=== PATIENT | female | born 1960 | race Caucasian/White ===

== ENCOUNTER 2020-03-28 12:54 | Inpatient (IN) | payer OTHER, SELFPAY ==
[2020-03-28] VITALS (35 sets, daily range): BP systolic 90–147; BP diastolic 34–98; PULSE 68–122; RESP 14–535; TEMP 36.4–36.7; O2SAT 95–100; BMI 56.3
--- NOTE | ~2020-03-28 | XR_ITS ---
EXAMINATION: XR knee RT 2V DATE: 03/29/2020 11:27 INDICATION: Right knee pain and swelling. TECHNIQUE: 3 views of right knee were obtained. COMPARISON: Right knee radiographs 11/22/2017 FINDINGS: There is lateral subluxation of tibia with respect to distal femur. No fracture. There is s evere tricompartmental osteoarthritis. No knee joint effusion. IMPRESSION: 1. Severe right knee osteoarthritis. Reviewed, dictated and finalized at location A.
--- NOTE | ~2020-03-28 | CT_ITS ---
EXAMINATION: CT abdomen w con DATE: 03/30/2020 09:48 INDICATION: Left adrenal mass. TECHNIQUE: Computed tomography (CT) of the abdomen was performed with 100 mL Omnipaque 350 intravenou s contrast. Automated exposure control and iterative reconstruction technique were employed. The dose -length product was 848.40 mGy-cm. COMPARISON: CT abdomen and pelvis 08/19/2019, chest CT 03/28/2020 FINDINGS: The visualized portions of the lung bases demonstrate atelectasis, worst in right middle lo be and left lower lobe. There is a trace left pleural effusion. Cardiomegaly is noted. No pericardial effusion. The liver, gallbladder, spleen, pancreas, and right adrenal gland are normal. There is a 2 .6 cm mass in left adrenal gland measuring soft tissue attenuation without change, likely an adenoma. There is a 2.0 cm mass in left adrenal gland containing macroscopic fat, consistent with a myelolipo ma. There are cysts in the kidneys measuring up to 8 mm on the left. No pleural effusion. There is di verticulosis of the colon without evidence of diverticulitis. There is severe lower lumbar spondylosi s. IMPRESSION: 1. Adrenal masses, stable from 08/19/2019, likely benign. Reviewed, dictated and finalized at location A.
--- NOTE | ~2020-03-28 | US_ITS ---
EXAMINATION:US venous doppler LE RT INDICATION:Right leg pain TECHNIQUE: Multiple grayscale, color flow and Doppler images of the right lower extremity deep venous systems were obtained and reviewed. COMPARISON:No prior studies for comparison. FINDINGS: The common femoral, superficial femoral and popliteal veins demonstrate normal respiratory variation, augmentation and compressibility. Color flow is also seen within the posterior tibial, pe roneal, greater saphenous and profunda veins. IMPRESSION: 1: No lower extremity deep venous thrombosis. Reviewed, dictated and finalized at location A.
--- NOTE | ~2020-03-28 | XR_ITS ---
EXAMINATION: XR chest 1V portable DATE: 04/01/2020 05:45 INDICATION: Shortness of breath. TECHNIQUE: A single frontal view of the chest was obtained. COMPARISON: Chest single view 03/28/2020, CT abdomen 03/30/2020, chest CT 03/28/2020 FINDINGS: There are airspace opacities in all lung zones bilaterally, left worse than right. No pleur al effusion or pneumothorax. Cardiomegaly is noted. There is a prominent left paracardial fat pad. IMPRESSION: 1. Worsened diffuse lung disease suspicious for pneumonia. 2. Cardiomegaly. Reviewed, dictated and finalized at location A.
--- NOTE | ~2020-03-28 | CT_ITS ---
EXAMINATION: CTA chest PE protocol DATE: 03/28/2020 16:38 INDICATION: Shortness of breath TECHNIQUE: Computed tomography (CT) pulmonary angiogram of the chest was performed with 100 mL Omnipa que-350 intravenous contrast. Additional 3D reconstructions utilizing coronal maximum intensity proje ction (MIP) were performed. Automated exposure control and iterative reconstruction technique were em ployed. The dose-length product was 934.89 mGy-cm. COMPARISON: None FINDINGS: Good contrast opacification of the pulmonary arteries. There is mild streak artifact from dense contr ast in the superior vena cava and right atrium. Moderate scattered respiratory motion artifact which significantly limits sensitivity in the and subsegmental and basilar segmental arteries. No definitiv e embolism. Mild emphysema at the apices. Discoid atelectasis in the left lower lobe. A few patchy gr oundglass opacities in the right upper lobe. No pleural effusion. Mild cardiomegaly. Atherosclerotic coronary artery calcification. No pericardial effusion. Atherosclerotic calcifications without signif icant stenosis along the normal caliber thoracic aorta. Likely reactive mild bilateral hilar lymphade nopathy. Relatively low attenuation left adrenal mass suggestive of adenoma however diagnostic assess ment of attenuation is limited by motion artifact. Mild thoracic dextroscoliosis with mild to moderat e spondylosis. IMPRESSION: 1. No pulmonary embolism however evaluation is significantly limited in the subsegmental and basilar segmental pulmonary arteries due to motion artifact. 2. Mild patchy groundglass opacities in the right upper lobe which could represent pneumonia, atelect asis or focal mild pulmonary edema. 3. Mild emphysema. 4. Coronary artery disease and mild cardiomegaly. 5. 3 cm left adrenal mass with density suggestive of adenoma but not diagnostic due to motion. Recomm end follow-up adrenal protocol pre and postcontrast CT of the abdomen. Reviewed, dictated and finalized at location A. IMPRESSION: 1. No pulmonary embolism however evaluation is significantly limited in the sub segmental and basilar segmental pulmonary arteries due to motion artifact. 2. Mild patchy groundglass opacities in the right upper lobe which could repres ent pneumonia, atelectasis or focal mild pulmonary edema. 3. Mild emphysema. 4. Coronary artery disease and mild cardiomegaly. 5. 3 cm left adrenal mass with density suggestive of adenoma but not diagnostic due to motion. Recommend follow-up adrenal protocol pre and postcontrast CT of the abdomen.
--- NOTE | ~2020-03-28 | XR_ITS ---
EXAMINATION: XR shoulder RT min 2V EXAM DATE: 03/29/2020 20:22 INDICATION: No known recent injury provided at this time. Pain of the right shoulder. TECHNIQUE: The following right shoulder projections obtained: frontal projection with internal rotati on, frontal projection with external rotation, Grashey, and scapular Y view (4+ views). There is no prior study for comparison. FINDINGS: There are multiple small calcifications along the rotator cuff, superior to the glenoid, pr obably calcific tendinosis. There is mild right acromioclavicular and glenohumeral primary osteoarthr itis. There are no acute fractures or dislocations identified. There is no subcutaneous gas. The so ft tissue is unremarkable. There are no radiopaque foreign bodies. IMPRESSION: 1. Mild right shoulder osteoarthritis. 2. Calcific tendinosis. Reviewed, dictated and finalized at location A.
--- NOTE | ~2020-03-28 | XR_ITS ---
XR chest 1V portable 03/28/2020 13:53 Indication: Shortness of breath Procedure: AP portable chest Comparison: Comparison to multiple prior studies sequentially, with oldest reviewed study dated 11/10. Findings: Cardiomegaly. Left basilar atelectasis. No focal pneumonia, edema, pleural effusion or pneu mothorax. No acute osseous abnormality. Impression: 1: No acute cardiopulmonary disease. Reviewed, dictated and finalized at location A. Impression: 1: No acute cardiopulmonary disease.
--- NOTE | ~2020-03-28 | XR_ITS ---
EXAMINATION: XR shoulder LT min 2V DATE: 03/29/2020 11:27 INDICATION: Left shoulder pain. TECHNIQUE: 4 views of left shoulder were obtained. COMPARISON: Chest CT 03/28/2020 FINDINGS: Bone alignment is normal. No fracture. The glenohumeral joint is not well profiled. There i s mild acromioclavicular joint osteoarthritis. There is mild calcific tendinitis of the rotator cuff. IMPRESSION: 1. Mild left acromioclavicular joint osteoarthritis. 2. Mild calcific tendinitis of left rotator cuff. Reviewed, dictated and finalized at location A.
--- NOTE | 2020-03-28 13:08 | ECG_ITS ---
Measurements Intervals [place] Rate: 75 P: 74 NE: 148 QRS: 48 QRSD: 85 T: 15 QT: 365 QTc: 410 Interpretive Statements SINUS RHYTHM DELAYED PRECORDIAL R/S TRANSITION LOW QRS VOLTAGE IN LIMB LEADS BASELINE ARTIFACT- V3 BORDERLINE ECG Electronically Signed On 03-29-2020 7:12:40 CDT by Armani Muro D.O.
--- NOTE | 2020-03-28 13:18 | ED.GENADULT ---
HPI - General Adult General Chief complaint: Weakness <YAIR Flores Last Filed: 03/28/20 18:14> Stated complaint: weakness <YAIR Flores Last Filed: 03/28/20 18:14> Source: patient <YAIR Flores Last Filed: 03/28/20 18:14> Mode of arrival: ambulatory <YAIR Flores Last Filed: 03/28/20 18:14> Limitations: no limitations <YAIR Flores Last Filed: 03/28/20 18:14> History of Present Illness HPI narrative: Patient is a 59-year-old female who presents to emergency department for evaluation of generalized arthralgias that have been present for the last several days also noting history of COPD and states she has had some shortness of breath with chronic cough denies any URI symptoms patient denies any fall patient also notes she has had constipation which is chronic in nature presents per EMS noting that she is normally wheelchair-bound lives by herself. <YAIR Flores Last Filed: 03/28/20 18:14> Related Data Home medications: Home Medications Medication Instructions Recorded Confirmed budesonide-formoterol HFA 160 INHALATION 11/07/19 01/15/20 mcg-4.5 mcg/actuation aerosol inhaler fluoxetine 20 mg capsule 40 mg PO DAILY cap 11/07/19 01/15/20 lisinopril 20 mg tablet 20 mg PO DAILY 11/07/19 01/15/20 spironolactone 25 mg tablet 25 mg PO DAILY 11/07/19 01/15/20 <YAIR Flores Last Filed: 03/28/20 18:14> Allergies/adverse reactions: Allergies Allergy/AdvReac Type Severity Reaction Status Date / Time ampicillin AdvReac Intermediate Nausea Verified 03/28/20 13:17 azithromycin AdvReac Intermediate Vomiting Verified 03/28/20 13:17 codeine AdvReac Intermediate Vomiting Verified 03/28/20 13:17 atorvastatin AdvReac Mild Muscle Pain Verified 03/28/20 13:17 tramadol AdvReac vommiting Verified 03/28/20 13:17 Erythromycin/Sulfisoxazole Allergy Intermediate Unknown Uncoded 03/28/20 13:17 <YAIR Flores Last Filed: 03/28/20 18:14> Review of Systems Review of Systems: All systems reviewed & are unremarkable except as noted in HPI and below <Naman Costa PA-C - Last Filed: 03/28/20 18:14> [facility] Past Medical History Medical History: Medical History Cellulitis and abscess of buttock Diabetes mellitus type 2 in obese Hyperlipidemia associated with type 2 diabetes mellitus Hypertension Morbid obesity with BMI of 50.0-59.9, adult <Naman Costa PA-C - Last Filed: 03/28/20 18:14> Social History Social History: Social History Years smoked: 50 Smoking status: Current every day smoker Tobacco type: cigarettes Alcohol intake: never Substance use: never Substance use type: marijuana Gender identity (if verbalized by the patient): Female <Naman Costa PA-C - Last Filed: 03/28/20 18:14> Exam Narrative: Exam Narrative: GENERAL: Well-appearing, obese, and in no acute distress. HEAD: Normocephalic, atraumatic. EYES: PERRLA and EOMI. ENT: Nares clear, no rhinorrhea or epistaxis. Mucous membranes moist. Oropharynx without tonsillar hypertrophy exudate or other lesions. NECK: Supple. No adenopathy or masses. CHEST: Clear to auscultation. No respiratory distress. Slight expiratory wheezes HEART: Regular rate and rhythm. No murmur heard. Normal peripheral pulses. ABDOMEN: Soft, nontender, nondistended EXTREMITIES: Normal range of motion. Chronic lymphedema of the lower extremities SKIN: Warm, dry, no rash. NEURO: No focal deficits. Alert and oriented x3. Cranial nerves II through XII grossly intact PSYCH: Normal mood and affect. <Naman Costa PA-C - Last Filed: 03/28/20 18:14> Course Course Emergency Course: Patient in the room aware of case findings treatment plan and diagnosis agreeing to stay in hospital for her hypoxemia and hy
[2020-03-28] MEDS: SODIUM CHLORIDE 0.9% IV 1,000 ML 999 ML IV CONT (13:26)
[2020-03-28 13:31] LABS: Alveolar/Arterial O2 Gradient 56.2 mmHg; Base Excess ABG 2.2 mEq/l (+/-2.0); Fractional Inspired Oxygen 32 %; HCO3 ABG 29.9 mEq/l (22.0-26.0); Oxygen Content ABG 14.8 %vol (16.0-22.0); Oxygen Saturation ABG 96.6 % (95.0-100.0); Oxyhemoglobin 92.9 % THb (90.0-100.0); PO2 ABG 98.5 mmHg (80.0-100.0); PO2 FiO2 Ratio Arterial Blood 3.08 %; Total Hemoglobin 11.2 g/dL (12.0-18.0); pH ABG 7.296 (7.350-7.450)
[2020-03-28 13:35] LABS: Device NASAL CANNULA; Modified Allen's Test Pass; PCO2 ABG 62.8 mmHg (35.0-45.0); Site Drawn LEFT RADIAL
--- NOTE | 2020-03-28 13:36 | PC.NURSE ---
Pt unable to recall medications, yells at nurse to read the fucking papers when asked to confirm.
--- NOTE | 2020-03-28 14:00 | PC.NURSE ---
RT at bedside to place patient on bipap.
--- NOTE | 2020-03-28 15:05 | PC.NURSE ---
Pt straight cathed with assist x3. Note large open, moist area to left perineum and several open areas to left pannus. Entire perineum inflamed, moist and malodorous. Pt tolerated procedure poorly, states that she uses a commode at home to use the restroom. Pt states pain has not improved however appears to feel better.
[2020-03-28 15:36] LABS: Basophils Absolute Auto 0.1 K/mm3 (0.0-0.1); Basophils Percent Auto 0.5 % (0.2-1.2); Eosinophils Absolute Auto 0.3 K/mm3 (0-0.3); Eosinophils Percent Auto 2.8 % (0-4.4); Hematocrit 35.4 % (37.0-47.0); Hemoglobin 10.4 g/dL (12.0-15.0); Immature Granulocyte Absolute 0.04 K/mm3 (0.00-0.031); Immature Granulocyte Percent A 0.3 % (0-0.5); Lymphocytes Absolute Auto 0.96 K/mm3 (0.9-3.2); Lymphocytes Percent Auto 7.9 % (18.3-44.2); Mean Corpuscular HGB Conc 29.4 g/dl (32-36); Mean Corpuscular Hemoglobin 26.4 pg (26-34); Mean Corpuscular Volume 89.8 fl (80-100); Monocytes Absolute Auto 0.9 K/mm3 (0.1-0.6); Monocytes Percent Auto 7.6 % (2.6-8.5); Neutrophils Absolute Auto 9.9 K/mm3 (1.3-6.7); Neutrophils Percent Auto 80.9 % (45.5-73.1); Platelet Count Result 336 k/mm3 (150-375); Red Blood Count 3.94 M/mm3 (4.2-5.4); Red Cell Distribution Width 16.3 % (11.5-14.5); White Blood Count 12.2 K/mm3 (4.5-10.0)
[2020-03-28 15:39] LABS: Add Urine Microscopic? NO; Appearance Urine Clear (Clear); Bilirubin Urine Negative (Negative); Blood Urine Negative (Negative); Color Urine Yellow (Yellow); Glucose Urine UA Negative (Negative); Ketones Urine Negative (Negative); Leukocyte Esterase Ur Negative LEU/UL (Negative); Nitrate Urine Negative (Negative); Protein Urine Negative (Negative); Specific Grav Ur 1.014 (1.001-1.035); Urobilinogen Urine Negative mg/dL (<2.0)
[2020-03-28 15:45] LABS: Prothrombin Time 13.2 Seconds (11.1-14.7)
[2020-03-28 15:46] LABS: Partial Thromboplastin Time 33.5 SECONDS (22.3-36.8)
[2020-03-28 15:48] LABS: Alanine Aminotransferase 9 U/L (4-35); Albumin Level 3.4 g/dL (3.5-5.1); Alkaline Phosphatase 93 U/L (38-126); Aspartate Amino Transferase 23 U/L (14-36); Bilirubin,Total 0.5 mg/dL (0.2-1.3); Blood Urea Nitrogen 24 mg/dL (7-17); Carbon Dioxide 33 mmol/L (22-30); Chloride 97 mmol/L (98-107); D Dimer 1.87 ug/mL (<0.48); Estimated CRCL calculation 68 ml/min; Estimated Glomerular Filt Rate 46; Glucose 103 mg/dL (65-105); Potassium 5.2 mmol/L (3.4-5.0); Sodium 134 mmol/L (137-145)
[2020-03-28 16:00] LABS: NT Pro B Type Natriuretic Pept 306 PG/ML (5-100); Troponin I < 0.012 ng/mL (0.000-0.034)
--- NOTE | 2020-03-28 16:24 | PC.NURSE ---
bipap paused for patient to go to CT. Placed on 3L/nc for transport per order MAURY Amin.
[2020-03-28 17:01] LABS: Alveolar/Arterial O2 Gradient 31.5 mmHg; Base Excess ABG 0.6 mEq/l (+/-2.0); Fractional Inspired Oxygen 24 %; HCO3 ABG 27.9 mEq/l (22.0-26.0); Oxygen Content ABG 13.6 %vol (16.0-22.0); Oxygen Saturation ABG 91.8 % (95.0-100.0); Oxyhemoglobin 89.7 % THb (90.0-100.0); PCO2 ABG 58.8 mmHg (35.0-45.0); PO2 ABG 69.7 mmHg (80.0-100.0); Total Hemoglobin 10.7 g/dL (12.0-18.0)
[2020-03-28 17:02] LABS: Device NASAL CANNULA; Modified Allen's Test Pass; Site Drawn RIGHT RADIAL
[2020-03-28 17:07] LABS: pH ABG 7.294 (7.350-7.450)
--- NOTE | 2020-03-28 17:19 | PC.NURSE ---
Return from CT, repeat ABG's done while pt off of bipap. ABG's improved but remain critical. Bipap replaced per RT.
[2020-03-28] MEDS: methylPREDNISolone SOD SUCC 125 MG VIAL IV PUSH (18:23)
--- NOTE | 2020-03-28 19:08 | PC.NURSE ---
Attempt to call report to IMU. Floor unable to take at present.
--- NOTE | 2020-03-28 21:00 | PM.IMHP ---
H&P: HPI History of Present Illness Chief complaint: Pain in her joints, swollen all over Narrative: Date and time of patient contact: 03/28/2020 at 9:00 p.m. Juanita Gil is a 59 year old female with a past medical history of morbid obesity, COPD with chronic home oxygen use, continued tobacco use, diabetes mellitus, and obstructive sleep apnea who presented to the ER via EMS from home due to generalized joint pain. While in the ER the patient was found to have acute combined respiratory and metabolic acidosis, as well as mild hyperkalemia and leukocytosis and was admitted in this setting. The patient is irritable and frustrated and states that no one is listening to her. She does not want to wear the BiPAP that was ordered in the ER for her breathing because she states that her breathing is not her main problem. However, she does admit that she has been having increased coughing with a change in her sputum from her usual clear to yellow color to yellow to green color over the last 5 days. She is always short of breath. She does not more short of breath than usual. She is on her usual 3 L of oxygen. She does not know if she had a measured fever but she has been having chills that sounds as if there consistent with rigors as well as periods of feeling hot. She has been feeling more fatigued than usual. She has not been using her CPAP for at least a month but it sounds as if it may be actually a couple of months. She reports that the [employer] company since her the wrong filters and she has not called them back to get the appropriate equipment sent. She reports that her shoulders hurts so bad and her so weak that she cannot lift her left arm far enough for me to palpate her pulse. She reports that she is swollen all over. But then when I asked her about her lower extremity edema it seems that this is more chronic in nature. She has significant pain even with minimal passive and active range of motion of the right knee. She had to reach across her body to grab her left arm to pull her left arm up onto her abdomen. She had significant pain in her left shoulder even with passive range of motion. 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 She has been taking between 5-6 naproxen several times a day at least for the last 5 days with only minimal relief in her pain. She is also on Celebrex. She reports that she has chronic decubitus wounds to the entirety of her posterior left thigh that she has an outpatient appointment with wound care tomorrow. She has chronic irritation in her inguinal and pannus folds. On examination the patient had shallow ulcerations of the right pannus fold. She has been having some nausea and decreased appetite but no vomiting. She reports that her last bowel movement was a couple of days ago and was small. She cannot tell me if she was having any hematochezia or melena. She can stand to pivot to a bedside commode usually but has not been able to get up at all the last couple of days. She denies any dysuria and does not know effort urine has been darker than usual. She denies any sore throat or heartburn symptoms. She denies any confusion, falls, trauma, or safety concerns. She recently kicked her daughter out of her home and her daughter is now homeless. She told the nursing staff that her daughter was trying to ?take over? when she was living in the home. The patient denies any recent ill contacts. She states that she has not been out of her home. However she has friends who come over to deliver her groceries and will sometimes stay to visit. She does not think that any of them have been ill. Although Bactrim is listed on the patient's home med rec she has not been prescribed this since December. Review of Systems Review of Systems: Narrative: 12 systems were reviewed with pertinent positives and negatives per HPI. Except as documented in the HPI, all other systems were reviewed
[2020-03-28] MEDS: LACTATED RINGERS 1,000 ML 75 ML IV CONT (22:13)
[2020-03-28] MEDS: SILVER SULFADIAZINE 1% CR 400 GM JAR (*BKC) 1 APPLIC TOPICAL (22:14)
[2020-03-28] MEDS: TOLNAFTATE 1% POWDER 45 GM BTL 1 APPLIC TOPICAL (22:14)
[2020-03-28] MEDS: FAMOTIDINE 20 MG/2 ML VIAL IV PUSH (22:14)
[2020-03-28] MEDS: ENOXAPARIN 40 MG/0.4 ML SYRINGE SUB-Q (22:15)
[2020-03-28 23:26] LABS: Alveolar/Arterial O2 Gradient 85.6 mmHg; Base Excess ABG 3.3 mEq/l (+/-2.0); Carboxyhemoglobin 1.1 % THb (0-2.0); Fractional Inspired Oxygen 34 %; HCO3 ABG 31.4 mEq/l (22.0-26.0); Methemoglobin ABG 0.4 %THb (0-1.5); Oxygen Content ABG 14.2 %vol (16.0-22.0); Oxygen Saturation ABG 93.6 % (95.0-100.0); Oxyhemoglobin 92.8 % THb (90.0-100.0); PO2 FiO2 Ratio Arterial Blood 2.29 %; Reduced Hemoglobin 5.7 %THb (0-5.0); Total Hemoglobin 10.8 g/dL (12.0-18.0)
[2020-03-28 23:29] LABS: PCO2 ABG 67.7 mmHg (35.0-45.0); pH ABG 7.284 (7.350-7.450)
[2020-03-28 23:30] LABS: Device NASAL CANNULA; Modified Allen's Test Pass; Site Drawn LEFT RADIAL
[2020-03-28 23:45] LABS: Lactic Acid Reflex 0.7 mmol/L (0.7-2.1)
[2020-03-28 23:46] LABS: Blood Urea Nitrogen 21 mg/dL (7-17); Carbon Dioxide 31 mmol/L (22-30); Chloride 98 mmol/L (98-107); Estimated CRCL calculation 72 ml/min; Estimated Glomerular Filt Rate 57; Glucose 197 mg/dL (65-105); Potassium 5.5 mmol/L (3.4-5.0); Sodium 133 mmol/L (137-145)
[2020-03-29] VITALS (21 sets, daily range): BP systolic 126–142; BP diastolic 49–56; PULSE 74–100; RESP 18–22; TEMP 36.4–36.8; O2SAT 92–97
[2020-03-29] MEDS: NICOTINE (*PBKC) 21 MG PATCH 1 PATCH TRANSDERM ×2 (02:19→21:59)
[2020-03-29] MEDS: IPRATROPIUM BR 0.02% INH SOLN 0.5 MG/2.5 ML VIAL INHALATION ×4 (02:33→19:51)
--- NOTE | 2020-03-29 03:02 | ADMGEN ---
This patient, Juanita Gil, was admitted to IMU Room 203-01. Patient/family oriented to hospital policies and general routines including ID bracelet, bed and alarms, visiting hours, pain management, procedures, bathroom and other care routines, personal items, smoking policy, room service/diet, and visiting hours. Valuables list has been completed. Information on how to activate the Rapid Response Team has been discussed. Patient/Family are encouraged to report perceived risks to care and to ask questions if they do not understand what they are told or what they should do.
--- NOTE | 2020-03-29 03:46 | PC.NURSE ---
At 0045 patient began to scream that she wanted to go to the bathroom. The rn reminded the patient that she came into the hospital because she was unable to even get out of bed. Getting up at this time would be very unsafe so a bed cano was offered to patient. Patient became very angry and was screaming and saying unacceptable words to rn. patient kept screaming to get up. Patient became very violent and silvia lebron was called.
[2020-03-29 04:47] LABS: Hematocrit 35.7 % (37.0-47.0); Hemoglobin 10.6 g/dL (12.0-15.0); Immature Granulocyte Absolute 0.04 K/mm3 (0.00-0.031); Immature Granulocyte Percent A 0.5 % (0-0.5); Lymphocytes Absolute Auto 0.46 K/mm3 (0.9-3.2); Lymphocytes Percent Auto 6.1 % (18.3-44.2); Mean Corpuscular HGB Conc 29.7 g/dl (32-36); Mean Corpuscular Hemoglobin 26.2 pg (26-34); Mean Corpuscular Volume 88.4 fl (80-100); Mean Platelet Volume 10.1 fl (7.4-10.4); Monocytes Absolute Auto 0.1 K/mm3 (0.1-0.6); Monocytes Percent Auto 0.7 % (2.6-8.5); Neutrophils Absolute Auto 6.9 K/mm3 (1.3-6.7); Neutrophils Percent Auto 92.7 % (45.5-73.1); Platelet Count Result 414 k/mm3 (150-375); Red Blood Count 4.04 M/mm3 (4.2-5.4); Red Cell Distribution Width 15.7 % (11.5-14.5); White Blood Count 7.5 K/mm3 (4.5-10.0)
[2020-03-29] MEDS: SODIUM CHLOR 3% 15 ML NEB (RESPIRATORY THERAPY) 6 ML INHALATION (04:47)
[2020-03-29 05:04] LABS: Alanine Aminotransferase 10 U/L (4-35); Albumin Level 3.6 g/dL (3.5-5.1); Alkaline Phosphatase 98 U/L (38-126); Aspartate Amino Transferase 13 U/L (14-36); Bilirubin,Total 0.3 mg/dL (0.2-1.3); Blood Urea Nitrogen 20 mg/dL (7-17); Calcium 9.3 mg/dL (8.4-10.2); Carbon Dioxide 31 mmol/L (22-30); Chloride 98 mmol/L (98-107); Estimated CRCL calculation 65 ml/min; Estimated Glomerular Filt Rate 51; Glucose 172 mg/dL (65-105); Potassium 5.2 mmol/L (3.4-5.0); Sodium 136 mmol/L (137-145)
[2020-03-29 05:07] LABS: Platelet Estimate Adequate (Adequate)
[2020-03-29 05:08] LABS: Microcytosis 1+ (NORMAL); Stomatocytes 1+ (NORMAL)
[2020-03-29] MEDS: methylPREDNISolone SOD SUCC 125 MG VIAL 60 MG IV PUSH (05:54)
[2020-03-29] MEDS: FLUOXETINE HCL 20 MG CAP 40 MG PO (09:16)
[2020-03-29] MEDS: PANTOPRAZOLE 40 MG TABLET PO (09:16)
[2020-03-29] MEDS: FAMOTIDINE 20 MG/2 ML VIAL IV PUSH ×2 (09:16→21:59)
[2020-03-29] MEDS: ENOXAPARIN 40 MG/0.4 ML SYRINGE SUB-Q ×2 (09:17→21:59)
[2020-03-29] MEDS: LOVASTATIN 10 MG TABLET PO (09:17)
[2020-03-29] MEDS: SILVER SULFADIAZINE 1% CR 400 GM JAR (*BKC) 1 APPLIC TOPICAL (09:17)
[2020-03-29] MEDS: TOLNAFTATE 1% POWDER 45 GM BTL 1 APPLIC TOPICAL ×2 (09:17→22:02)
[2020-03-29 10:51] LABS: Alveolar/Arterial O2 Gradient 109.3 mmHg; Base Excess ABG 4.2 mEq/l (+/-2.0); Carboxyhemoglobin 1.1 % THb (0-2.0); Fractional Inspired Oxygen 32 %; HCO3 ABG 29.9 mEq/l (22.0-26.0); Methemoglobin ABG 0.1 %THb (0-1.5); Oxygen Content ABG 13.7 %vol (16.0-22.0); Oxygen Saturation ABG 90.5 % (95.0-100.0); Oxyhemoglobin 89.2 % THb (90.0-100.0); PCO2 ABG 50.3 mmHg (35.0-45.0); PO2 FiO2 Ratio Arterial Blood 1.88 %; Reduced Hemoglobin 9.6 %THb (0-5.0); Total Hemoglobin 10.9 g/dL (12.0-18.0); pH ABG 7.392 (7.350-7.450)
[2020-03-29 10:52] LABS: Device NASAL CANNULA; Modified Allen's Test Pass; Site Drawn RIGHT RADIAL
--- NOTE | 2020-03-29 16:31 | PM.IMPN ---
Progress Note: A&P Assessment and Plan (1) Acute exacerbation of chronic obstructive pulmonary disease: Code(s): J44.1 - Chronic obstructive pulmonary disease with (acute) exacerbation Status: Acute Assessment and Plan: -----likely due to pneumonia. Her ABG has improved with BiPAP therapy. Solu-Medrol has been decreased to 40 mg q.12. She is not utilizing any more oxygen than she usually takes. She is not having any additional shortness of breath compared to her normal baseline shortness of breath. Will continue Levaquin IV. Patient appears to have rigors so we will await for her blood cultures. Since she is having a productive cough, I have ordered a sputum culture. Continue Xopenex and Atrovent. (2) Acute respiratory failure with hypoxia and hypercarbia: Code(s): J96.01 - Acute respiratory failure with hypoxia; J96.02 - Acute respiratory failure with hypercapnia Status: Acute Assessment and Plan: -----improved with limited BiPAP therapy since the patient is refusing most of the time. Continue treatment as stated above. If the patient becomes more confused, may need to consider ABG and placing her back on BiPAP. Will monitor her in the IMU tonight. (3) Acute kidney injury: Code(s): N17.9 - Acute kidney failure, unspecified Status: Acute Assessment and Plan: -----minimally elevated. Multifactorial due to excessive naproxen use in addition to Celebrex, spironolactone, and lisinopril use. Potassium is improving but will give 1 dose of Kayexalate at this time 5.5 last night and still high today. Her lisinopril has been held. (4) Right upper lobe pneumonia: Code(s): J18.9 - Pneumonia, unspecified organism Status: Acute Assessment and Plan: -----continue Levaquin (5) Joint pain: Code(s): M25.50 - Pain in unspecified joint Status: Acute Assessment and Plan: -----today on exam the patient has complaints of right shoulder pain. This will be imaged. As for her right knee, this is due to severe arthritis and is chronic. It is not improving with steroids which makes autoimmune less likely. Avoid narcotics in this patient due to the risk of hypercapnia. She is having calf pain and had a positive Homans sign. Because she is sedentary, I will do a ultrasound of the area. (6) Morbid obesity: Code(s): E66.01 - Morbid (severe) obesity due to excess calories Status: Acute Assessment and Plan: -----would benefit from weight loss surgery. Her pannus has some breakdown which wound care has been following. Continue with their recommendations. (7) Diabetes mellitus type 2 in obese: Code(s): E11.69 - Type 2 diabetes mellitus with other specified complication; E66.9 - Obesity, unspecified Status: Chronic Assessment and Plan: -----last A1c in December was 7.5. I do not see that she is on any medications, will confirm with her on exam tomorrow. Continue sliding scale insulin at this time. A1c in the am Time Spent With Patient Time with patient: 25 - 35 minutes Subjective Date/time seen: 03/29/20 16:31 Interval history: Pt is a 59-year-old female here for pneumonia and body aches. Patient states that her right shoulder and right knee are still hurting her. The steroids have not made a difference in her pain. When asked, she said her right knee has been hurting for 20 years and she is wheelchair-bound at home pretty much. She does not get up and walk. She understands that she has severe osteoarthritis and she is overweight. As for her right shoulder, this started about a week ago. She did not have any falls that she recalls. She also has been coughing which is unchanged today. When she coughs, she occasionally has reproducible stabbing chest pain. Her cough has been productive. She always feels short of breath and this has not changed. She feels a little constipated today
[2020-03-29 17:04] LABS: Hemoglobin A1C 6.8 % (<5.7)
[2020-03-29] MEDS: SODIUM POLYSTYRENE SULFONONATE 15 GM/60 ML BTL PO (18:43)
[2020-03-29] MEDS: SILVERGEL (ELTA) 45 ML 1 APPLIC TOPICAL (18:43)
[2020-03-29 18:49] LABS: Glucose Point of Care 243 (65-105)
[2020-03-29] MEDS: INSULIN ASPART (*BKC) 100 UNITS/ML SUB-Q (18:50)
[2020-03-29 21:02] LABS: Glucose Point of Care 239 (65-105)
[2020-03-29] MEDS: methylPREDNISolone SOD SUCC 40 MG VIAL IV PUSH (21:59)
[2020-03-30] VITALS (23 sets, daily range): BP systolic 133–152; BP diastolic 54–75; PULSE 69–100; RESP 20–22; TEMP 35.7–37.2; O2SAT 90–97
[2020-03-30] MEDS: IPRATROPIUM BR 0.02% INH SOLN 0.5 MG/2.5 ML VIAL INHALATION ×4 (01:28→20:01)
[2020-03-30 04:22] LABS: Hematocrit 33.1 % (37.0-47.0); Hemoglobin 9.9 g/dL (12.0-15.0); Mean Corpuscular HGB Conc 29.9 g/dl (32-36); Mean Corpuscular Hemoglobin 26.1 pg (26-34); Mean Corpuscular Volume 87.1 fl (80-100); Mean Platelet Volume 10.3 fl (7.4-10.4); Platelet Count Result 436 k/mm3 (150-375); Red Cell Distribution Width 15.7 % (11.5-14.5); White Blood Count 18.6 K/mm3 (4.5-10.0)
[2020-03-30 04:37] LABS: Blood Urea Nitrogen 20 mg/dL (7-17); CRP 4.9 mg/dL (<1.0); Calcium 9.2 mg/dL (8.4-10.2); Carbon Dioxide 30 mmol/L (22-30); Chloride 97 mmol/L (98-107); Estimated CRCL calculation 66 ml/min; Estimated Glomerular Filt Rate 51; Glucose 209 mg/dL (65-105); Potassium 4.9 mmol/L (3.4-5.0); Sodium 133 mmol/L (137-145)
[2020-03-30 07:49] LABS: Glucose Point of Care 242 (65-105)
[2020-03-30] MEDS: FLUOXETINE HCL 20 MG CAP 40 MG PO (08:37)
[2020-03-30] MEDS: PANTOPRAZOLE 40 MG TABLET PO (08:37)
[2020-03-30] MEDS: FAMOTIDINE 20 MG/2 ML VIAL IV PUSH (08:37)
[2020-03-30] MEDS: SILVERGEL (ELTA) 45 ML 1 APPLIC TOPICAL (08:38)
[2020-03-30] MEDS: methylPREDNISolone SOD SUCC 40 MG VIAL IV PUSH (08:38)
[2020-03-30] MEDS: LOVASTATIN 10 MG TABLET PO (08:38)
[2020-03-30] MEDS: TOLNAFTATE 1% POWDER 45 GM BTL 1 APPLIC TOPICAL ×2 (08:38→22:40)
[2020-03-30] MEDS: ENOXAPARIN 40 MG/0.4 ML SYRINGE SUB-Q (08:38)
[2020-03-30] MEDS: INSULIN ASPART (*BKC) 100 UNITS/ML SUB-Q ×2 (08:39→18:46)
[2020-03-30 11:10] LABS: Glucose Point of Care 166 (65-105)
--- NOTE | 2020-03-30 16:40 | PM.IMPN ---
Progress Note: A&P Assessment and Plan (1) Acute exacerbation of chronic obstructive pulmonary disease: Code(s): J44.1 - Chronic obstructive pulmonary disease with (acute) exacerbation Status: Acute Assessment and Plan: -----likely due to pneumonia. Oxygen prn bipap Continue Xopenex and Atrovent.IV levaquin, wean off steroids, move to medical floor (2) Acute respiratory failure with hypoxia and hypercarbia: Code(s): J96.01 - Acute respiratory failure with hypoxia; J96.02 - Acute respiratory failure with hypercapnia Status: Acute Assessment and Plan: ----Improving can move to medical floor. (3) Acute kidney injury: Code(s): N17.9 - Acute kidney failure, unspecified Status: Acute Assessment and Plan: -----creat is 1.1 maybe secondary to medications (4) Right upper lobe pneumonia: Code(s): J18.9 - Pneumonia, unspecified organism Status: Acute Assessment and Plan: -----continue Levaquin (5) Joint pain: Code(s): M25.50 - Pain in unspecified joint Status: Acute Assessment and Plan: -----today on exam the patient has complaints of right shoulder pain. mild OA knee shows severe OA will consult orthopedics for joint injection (6) Morbid obesity: Code(s): E66.01 - Morbid (severe) obesity due to excess calories Status: Acute Assessment and Plan: -----would benefit from weight loss surgery. Her pannus has some breakdown which wound care has been following. Continue with their recommendations. Wound care consulted (7) Diabetes mellitus type 2 in obese: Code(s): E11.69 - Type 2 diabetes mellitus with other specified complication; E66.9 - Obesity, unspecified Status: Chronic Assessment and Plan: -----last A1c in December was 7.5. Continue sliding scale insulin at this time. A1c is 6.8 Subjective Date/time seen: 03/30/20 16:40 Interval history: Pt is a 59-year-old female here for pneumonia and body aches. Patient states that her right shoulder and right knee are still hurting her. Pt is overweight and is immobile due to pain in her knee and shoulder. Pt admitted with pneumonia, APURVA, COPD, pt also found to have a incidental 3 cm left adrenal mass could be adenoma. Pt found to have pressure sores near her groin area. Pt complains of joint pain and SOB Review of Systems Review of Systems: All systems reviewed & are unremarkable except as noted in HPI and below Musculoskeletal: Musculoskeletal: Reports arthralgias and Reports joint swelling Comments: Knee and shoulder Exam Narrative: Exam Narrative: General: Morbidly obese Neck: supple Neuro: Alert and oriented x4 CV:RRR Resp: Reduced breath sounds. Abd: Soft, and obese. Pannus with significant yeast and breakdown. Pressure sores near groin area Extremities: No pitting edema Objective Data Vital Signs Vital Signs: Vital Signs - 24 hr 03/29/20 18:00 03/29/20 19:40 03/29/20 19:51 Temperature 36.6 C Pulse Rate 92 88 90 Respiratory Rate 22 H 20 Blood Pressure 133/55 L Pulse Oximetry 96 92 03/29/20 20:00 03/29/20 22:00 03/29/20 23:23 Temperature 36.6 C Pulse Rate 87 85 85 Respiratory Rate 20 Blood Pressure 142/49 H Pulse Oximetry 93 03/30/20 00:00 03/30/20 01:28 03/30/20 01:40 Temperature Pulse Rate 77 88 89 Respiratory Rate 20 20 Blood Pressure Pulse Oximetry 03/30/20 02:00 03/30/20 04:00 03/30/20 05:58 Temperature 36.6 C Pulse Rate 94 97 96 Respiratory Rate 22 H Blood Pressure 152/66 H Pulse Oximetry 97 03/30/20 08:00 03/30/20 08:12 03/30/20 08:55 Temperature 35.9 C L Pulse Rate 69 75 87 Respiratory Rate 22 H 20 Blood Pressure 150/54 H Pulse Oximetry 93 03/30/20 08:57 03/30/20 09:05 03/30/20 10:00 Temperature Pulse Rate 72 93 Respiratory Rate 20 Blood Pressure Pulse Oximetry 90 03/30/20 12:25
[2020-03-30 17:33] LABS: Glucose Point of Care 274 (65-105)
[2020-03-30] MEDS: NICOTINE (*PBKC) 21 MG PATCH 1 PATCH TRANSDERM (18:49)
[2020-03-30] MEDS: methylPREDNISolone SOD SUCC 40 MG VIAL 20 MG IV PUSH (20:32)
[2020-03-30 20:40] LABS: Glucose Point of Care 236 (65-105)
[2020-03-31] VITALS (11 sets, daily range): BP systolic 124–141; BP diastolic 47–61; PULSE 65–88; RESP 18–20; TEMP 36.4–36.8; O2SAT 93–95
[2020-03-31] MEDS: IPRATROPIUM BR 0.02% INH SOLN 0.5 MG/2.5 ML VIAL INHALATION ×4 (01:01→20:01)
[2020-03-31] MEDS: SODIUM CHLOR 3% 15 ML NEB (RESPIRATORY THERAPY) 6 ML INHALATION (04:36)
[2020-03-31 06:06] LABS: Alanine Aminotransferase 10 U/L (4-35); Albumin Level 3.4 g/dL (3.5-5.1); Alkaline Phosphatase 84 U/L (38-126); Aspartate Amino Transferase 11 U/L (14-36); Bilirubin,Total < 0.1 mg/dL (0.2-1.3); Blood Urea Nitrogen 24 mg/dL (7-17); Calcium 9.3 mg/dL (8.4-10.2); Carbon Dioxide 32 mmol/L (22-30); Chloride 93 mmol/L (98-107); Estimated CRCL calculation 60 ml/min; Estimated Glomerular Filt Rate 46; Glucose 231 mg/dL (65-105); Sodium 130 mmol/L (137-145)
[2020-03-31] MEDS: SPIRONOLACTONE 25 MG TABLET PO (08:40)
[2020-03-31] MEDS: PANTOPRAZOLE 40 MG TABLET PO (08:40)
[2020-03-31] MEDS: ENOXAPARIN 40 MG/0.4 ML SYRINGE SUB-Q (08:41)
[2020-03-31] MEDS: LOVASTATIN 10 MG TABLET PO (08:41)
[2020-03-31] MEDS: lisinopriL 20 MG TABLET PO (08:41)
[2020-03-31] MEDS: FLUOXETINE HCL 20 MG CAP 40 MG PO (08:41)
[2020-03-31] MEDS: INSULIN ASPART (*BKC) 100 UNITS/ML SUB-Q ×3 (08:42→17:15)
[2020-03-31] MEDS: methylPREDNISolone SOD SUCC 40 MG VIAL 20 MG IV PUSH (08:45)
[2020-03-31 08:46] LABS: Glucose Point of Care 278 (65-105)
--- NOTE | 2020-03-31 10:45 | PM.CNOR ---
Assessment and Plan Assessment and plan (1) Osteoarthritis of both knees: Qualifiers: Osteoarthritis type: primary Qualified Code(s): M17.0 - Bilateral primary osteoarthritis of knee Code(s): M17.0 - Bilateral primary osteoarthritis of knee Status: Acute Assessment and Plan: Advanced degenerative disease bilateral knees with flexion contracture and varus deformity. Patient is a non ambulator. She is not a surgical candidate. I spoke with Dr. Tapia regarding the care plan. We agree that bilateral knee cortisone injections may provide some pain relief and assist with her capabilities for mobilization. I will perform the injections later today. History of Present Illness HPI Consult date: 03/31/20 Requesting physician: Quin Claire MD Consult reason: joint pain Chief complaint: Pain in her joints, swollen all over Narrative: 59-year-old female complains of severe bilateral knee pain. Right worse than left. Intermittent symptoms over many years. Worsening recently. She admits to becoming essentially nonambulatory. She uses a wheelchair for transfers. Has not had any other injection treatments. Has had therapy in the past. Complains of associated aches and pains in the shoulders and wrists and hands. Review of Systems Review of Systems: Narrative: Complete history review of systems performed. Relevant findings include decubitus ulcer, COPD with oxygen requirement. All systems reviewed & are unremarkable except as noted in HPI and below PMFSH Past Medical History Medical History (Updated 03/31/20 @ 10:57 by Aaron Lewis MD) Bilateral cataracts Maturing Cellulitis and abscess of buttock July 2019 Diabetes mellitus type 2 in obese Essential hypertension Hyperlipidemia associated with type 2 diabetes mellitus A1c of 05 August 2019 Morbid obesity with BMI of 50.0-59.9, adult Obstructive sleep apnea With home CPAP with intermittent use Osteoarthritis of both knees Surgical History Surgical History History of ectopic Family History Family History Father Suicide Mother , At age 60 Cerebral aneurysm Cerebrovascular accident Coronary artery disease Sibling Hypertension Sister Social History Social History Social History: Primary care physician: Dr. Reuben Mcclain Code status: Full code per EMR Smoking packs per day: 1.5 Smoking cigarettes per day: 30.0 Years smoked: 50 Smoking pack-years: 75.00 Smoking status: Current every day smoker Tobacco type: cigarettes Additional smoking assessment comments: The patient started smoking a 7. Alcohol intake: never Substance use: current Substance use type: marijuana Last use: Daily marijuana use. Living arrangements: alone Additional living arrangements comments: She reports that she lives alone. She recently kicked her daughter out of the house. She is essentially wheelchair dependent and transfers to a bedside commode. Additional occupation/education comments: Disabled. Gender identity (if verbalized by the patient): Female Spiritual care concerns: No Meds Home Medications and Allergies Home Medications Medication Instructions Recorded Confirmed Type budesonide-formoterol HFA 160 1 puff INHALATION Q12H PRN 11/07/19 03/28/20 History mcg-4.5 mcg/actuation aerosol inhaler fluoxetine 20 mg capsule 40 mg PO DAILY cap 11/07/19 03/28/20 History lisinopril 20 mg tablet 20 mg PO DAILY 11/07/19 03/28/20 History spironolactone 25 mg tablet 25 mg PO DAILY 11/07/19 03/28/20 History nitroglycerin 0.4 mg sublingual 0.4 mg SUBLINGUAL Q5M PRN #7 tablet 11/19/19 03/28/20 Rx tablet albuterol sulfate 90 mcg/actuation 1 puff INHALATION Q4H PRN #8.5 gm 01/05/20 03/28/20
[2020-03-31] MEDS: SILVERGEL (ELTA) 45 ML 1 APPLIC TOPICAL (12:30)
[2020-03-31] MEDS: TOLNAFTATE 1% POWDER 45 GM BTL 1 APPLIC TOPICAL ×2 (12:31→21:32)
[2020-03-31 12:36] LABS: Glucose Point of Care 281 (65-105)
[2020-03-31] MEDS: methylPREDNISolone ACETATE 80 MG/ML VIAL I-ARTICULR (15:06)
--- NOTE | 2020-03-31 16:21 | PM.IMPN ---
Progress Note: A&P Assessment and Plan (1) Acute exacerbation of chronic obstructive pulmonary disease: Code(s): J44.1 - Chronic obstructive pulmonary disease with (acute) exacerbation Status: Acute Assessment and Plan: -----likely due to pneumonia. Oxygen prn bipap Continue Xopenex and Atrovent.IV levaquin, wean off steroids transition to oral, rpt CXR leonel AM (2) Acute respiratory failure with hypoxia and hypercarbia: Code(s): J96.01 - Acute respiratory failure with hypoxia; J96.02 - Acute respiratory failure with hypercapnia Status: Acute Assessment and Plan: ----Improving can move to medical floor. (3) Acute kidney injury: Code(s): N17.9 - Acute kidney failure, unspecified Status: Acute Assessment and Plan: -----creat is 1.1 maybe secondary to medications (4) Right upper lobe pneumonia: Code(s): J18.9 - Pneumonia, unspecified organism Status: Acute Assessment and Plan: -----continue Levaquin Iv, BC are negative rpt cxr leonel hopefully IV abx can be stopped tomorrow (5) Joint pain: Code(s): M25.50 - Pain in unspecified joint Status: Acute Assessment and Plan: -----today on exam the patient has complaints of right shoulder pain. mild OA knee shows severe OA will consult orthopedics for joint injection, continue PT/ OT, compliance advised. (6) Morbid obesity: Code(s): E66.01 - Morbid (severe) obesity due to excess calories Status: Acute Assessment and Plan: -----would benefit from weight loss surgery. Her pannus has some breakdown which wound care has been following. Continue with their recommendations. Wound care consulted (7) Diabetes mellitus type 2 in obese: Code(s): E11.69 - Type 2 diabetes mellitus with other specified complication; E66.9 - Obesity, unspecified Status: Chronic Assessment and Plan: -----last A1c in December was 7.5. Continue sliding scale insulin at this time. A1c is 6.8 Subjective Date/time seen: 03/31/20 16:21 Interval history: Pt is a 59-year-old female here for pneumonia and body aches. Patient states that her right shoulder and right knee are still hurting her. Pt is overweight and is immobile due to pain in her knee and shoulder. Pt admitted with pneumonia, APURVA, COPD, pt also found to have a incidental 3 cm left adrenal mass could be adenoma. Pt found to have pressure sores near her groin area. Pt complains of joint pain ongoing. Pt due to have BL knee injections today under orthopedics. Pt advised to continue with physical theraphy. Pt feels her SOB is improving. Will order Cxr for leonel Am and urology consult for adenomal mass Review of Systems Review of Systems: All systems reviewed & are unremarkable except as noted in HPI and below Respiratory: Respiratory: Reports chest congestion, Reports cough and Reports dyspnea (mild ) Musculoskeletal: Musculoskeletal: Reports arthralgias and Reports joint swelling Exam Narrative: Exam Narrative: General: Morbidly obese Neck: supple Neuro: Alert and oriented x4 CV:RRR Resp: Reduced breath sounds. Abd: Soft, and obese. Pannus with significant yeast and breakdown. Pressure sores near groin area Extremities: No pitting edema Objective Data Vital Signs Vital Signs: Vital Signs - 24 hr 03/30/20 19:05 03/30/20 20:04 03/30/20 20:12 Temperature 37.2 C Pulse Rate 89 95 85 Respiratory Rate 22 H 20 20 Blood Pressure 145/55 H Pulse Oximetry 90 92 03/30/20 22:15 03/31/20 01:04 03/31/20 01:10 Temperature 36.7 C Pulse Rate 86 69 78 Respiratory Rate 20 20 20 Blood Pressure 133/75 Pulse Oximetry 91 03/31/20 06:00 03/31/20 08:05 03/31/20 08:16 Temperature 36.7 C Pulse Rate 65 72 76 Respiratory Rate 20 18 18 Blood Pressure 141/61 H Pulse Oximetry 94 94 03/31/20 14:00 03/31/20 14:18 03/31/20 14:29 Temperature 36.8 C Pulse Rate 88 76
[2020-03-31] MEDS: NICOTINE (*PBKC) 21 MG PATCH 1 PATCH TRANSDERM (17:10)
[2020-03-31 17:27] LABS: Glucose Point of Care 307 (65-105)
[2020-03-31] MEDS: SENNOSIDES 8.6 MG TABLET PO (21:27)
[2020-03-31 22:31] LABS: Glucose Point of Care 327 (65-105)
[2020-04-01] VITALS (8 sets, daily range): BP systolic 136–151; BP diastolic 60–82; PULSE 71–93; RESP 18–22; TEMP 35.5–36.8; O2SAT 92–95
[2020-04-01] MEDS: IPRATROPIUM BR 0.02% INH SOLN 0.5 MG/2.5 ML VIAL INHALATION ×2 (01:51→08:06)
[2020-04-01] MEDS: SILVERGEL (ELTA) 45 ML 1 APPLIC TOPICAL (07:56)
[2020-04-01] MEDS: ENOXAPARIN 40 MG/0.4 ML SYRINGE SUB-Q (08:03)
[2020-04-01] MEDS: FLUOXETINE HCL 20 MG CAP 40 MG PO (08:04)
[2020-04-01] MEDS: predniSONE 20 MG, predniSONE 10 MG 30 MG PO (08:04)
[2020-04-01] MEDS: LOVASTATIN 10 MG TABLET PO (08:04)
[2020-04-01] MEDS: PANTOPRAZOLE 40 MG TABLET PO (08:05)
[2020-04-01] MEDS: TOLNAFTATE 1% POWDER 45 GM BTL 1 APPLIC TOPICAL ×2 (08:05→21:45)
[2020-04-01] MEDS: SPIRONOLACTONE 25 MG TABLET PO (08:05)
[2020-04-01] MEDS: lisinopriL 20 MG TABLET PO (08:05)
[2020-04-01] MEDS: INSULIN ASPART (*BKC) 100 UNITS/ML SUB-Q (08:10)
[2020-04-01 08:24] LABS: Glucose Point of Care 283 (65-105)
--- NOTE | 2020-04-01 11:33 | PM.IMPN ---
Progress Note: A&P Assessment and Plan (1) Acute exacerbation of chronic obstructive pulmonary disease: Code(s): J44.1 - Chronic obstructive pulmonary disease with (acute) exacerbation Status: Acute Assessment and Plan: -----likely due to pneumonia. Oxygen prn bipap Continue Xopenex and Atrovent.IV levaquin, wean off steroids transition to oral, Cxr looks Worsening, covid risk, I will order Covid test today. (2) Acute respiratory failure with hypoxia and hypercarbia: Code(s): J96.01 - Acute respiratory failure with hypoxia; J96.02 - Acute respiratory failure with hypercapnia Status: Acute Assessment and Plan: ----Improving (3) Acute kidney injury: Code(s): N17.9 - Acute kidney failure, unspecified Status: Acute Assessment and Plan: -----creat is 1.1 maybe secondary to medications (4) Right upper lobe pneumonia: Code(s): J18.9 - Pneumonia, unspecified organism Status: Acute Assessment and Plan: -----continue Levaquin Iv, BC are negative. I am ordering covid test as pt Cxr is worsening. Pt is on 3 liters of oxygen, which she states is her baseline. (5) Joint pain: Code(s): M25.50 - Pain in unspecified joint Status: Acute Assessment and Plan: -----today on exam the patient has complaints of right shoulder pain. mild OA knee shows severe OA will consult orthopedics for joint injection, continue PT/ OT, compliance advised. (6) Morbid obesity: Code(s): E66.01 - Morbid (severe) obesity due to excess calories Status: Acute Assessment and Plan: -----would benefit from weight loss surgery. Her pannus has some breakdown which wound care has been following. Continue with their recommendations. Wound care consulted (7) Diabetes mellitus type 2 in obese: Code(s): E11.69 - Type 2 diabetes mellitus with other specified complication; E66.9 - Obesity, unspecified Status: Chronic Assessment and Plan: -----last A1c in December was 7.5. Continue sliding scale insulin at this time. A1c is 6.8 Subjective Date/time seen: 04/01/20 11:33 Interval history: Pt is admitted with pneumonia, APURVA, COPD, pt also found to have a incidental 3 cm left adrenal mass could be adenoma. Pt found to have pressure sores near her groin area. Pt had BL knee injections yesterday under orthopedics. Pt advised to continue with physical theraphy at home. Sob is much better, however, Cxr today shows- worsening pneumonia. Pt had CT scan of her chest- mild patchy groundglass opacities in the right upper lobe which could represent pneumonia, atelectasis or focal mild pulmonary edema. Worsening chest xray, covid risk, I will order Covid test today. Review of Systems Review of Systems: All systems reviewed & are unremarkable except as noted in HPI and below Respiratory: Respiratory: Reports chest congestion, Reports cough and Reports dyspnea Exam Narrative: Exam Narrative: General: Morbidly obese Neck: supple Neuro: Alert and oriented x4 CV:RRR Resp: Reduced breath sounds. Abd: Soft, and obese. Pannus with significant yeast and breakdown. Pressure sores near groin area Extremities: No pitting edema Objective Data Vital Signs Vital Signs: Vital Signs - 24 hr 03/31/20 14:00 03/31/20 14:18 03/31/20 14:29 Temperature 36.8 C Pulse Rate 88 76 72 Respiratory Rate 18 18 18 Blood Pressure 135/53 L Pulse Oximetry 95 03/31/20 20:01 03/31/20 20:10 03/31/20 22:00 Temperature 36.4 C L Pulse Rate 77 75 72 Respiratory Rate 18 18 18 Blood Pressure 124/47 L Pulse Oximetry 93 95 04/01/20 01:52 04/01/20 01:59 04/01/20 06:00 Temperature 35.5 C L Pulse Rate 71 75 74 Respiratory Rate 18 18 18 Blood Pressure 146/60 H Pulse Oximetry 95 04/01/20 08:07 04/01/20 08:14 Temperature Pulse Rate 72 78 Respiratory Rate 18 20 Blood Pressure Pulse Oximetry 92 Intake/Ou
[2020-04-01 12:06] LABS: Glucose Point of Care 433 (65-105)
[2020-04-01] MEDS: INSULIN ASPART (*BKC) 100 UNITS/ML 10 UNITS SUB-Q ×2 (12:29→18:56)
--- NOTE | 2020-04-01 14:38 | WPDURCON ---
Assessment and Plan Assessment and plan (1) Adrenal mass: Code(s): E27.8 - Other specified disorders of adrenal gland Status: Acute Assessment and Plan: After discussion with Dr. Goodrich, patient needs to follow up with Endocrinology for a workup d/t multiple co-morbidities it is hard to tell if this mass has any effect on her hyponatremia or other current medical concerns. She will then follow up with Dr. Cabezas or Dr. Soto to monitor the mass via repeat imaging and to be evaluated in the office. Urology Consult Note HPI Date Seen: 04/01/20 Requesting Physician: Quin Claire MD Primary Care Provider: Reuben Mcclain MD Consult Narrative Narrative: Juanita Gil is a 59 year old female who presented to the ER d/t chills, productive cough and overall weakness. She currently has a COVID test pending. She lives at home. She was afebrile upon arrival, but has a creatinine of 1.20 and has hyponatremia. Incidentally on her CT scan it was noted that she has a stable adrenal mass that is stable from her previous CT scan from 08/19/19 and is likely benign. We were consulted on behalf of this mass. She denies any difficulty with urination, abdominal pain, flank pain or any urinary symptoms. She is currently being treated for pneumonia. Review of Systems Cardiovascular: Cardiovascular: Denies chest pain Respiratory: Respiratory: Reports no additional respiratory complaints Gastrointestinal: Gastrointestinal: Denies abdominal pain Genitourinary: Genitourinary: Denies hematuria, Denies dysuria, Denies urinary incontinence, Denies urinary hesitancy and Denies urinary urgency [facility] Past Medical History Medical History Bilateral cataracts Maturing Cellulitis and abscess of buttock July 2019 Diabetes mellitus type 2 in obese Essential hypertension Hyperlipidemia associated with type 2 diabetes mellitus A1c of 05 August 2019 Morbid obesity with BMI of 50.0-59.9, adult Obstructive sleep apnea With home CPAP with intermittent use Osteoarthritis of both knees Surgical History Surgical History History of ectopic Family History Family History Father Suicide Mother , At age 60 Cerebral aneurysm Cerebrovascular accident Coronary artery disease Sibling Hypertension Sister Social History Social History Social History: Primary care physician: Dr. Reuben Mcclain Code status: Full code per EMR Smoking packs per day: 1.5 Smoking cigarettes per day: 30.0 Years smoked: 50 Smoking pack-years: 75.00 Smoking status: Current every day smoker Tobacco type: cigarettes Additional smoking assessment comments: The patient started smoking a 7. Alcohol intake: never Substance use: current Substance use type: marijuana Last use: Daily marijuana use. Living arrangements: alone Additional living arrangements comments: She reports that she lives alone. She recently kicked her daughter out of the house. She is essentially wheelchair dependent and transfers to a bedside commode. Additional occupation/education comments: Disabled. Gender identity (if verbalized by the patient): Female Spiritual care concerns: No Meds Home Medications and Allergies Home Medications Medication Instructions Recorded Confirmed Type budesonide-formoterol HFA 160 1 puff INHALATION Q12H PRN 11/07/19 03/28/20 History mcg-4.5 mcg/actuation aerosol inhaler fluoxetine 20 mg capsule 40 mg PO DAILY cap 11/07/19 03/28/20 History lisinopril 20 mg tablet 20 mg PO DAILY 11/07/19 03/28/20 History spironolactone 25 mg tablet 25 mg PO DAILY 11/07/19 03/28/20 History nitroglycerin 0.4 mg sublingual 0.4 mg SUBLINGUAL Q5M PRN #7 t
--- NOTE | 2020-04-01 16:48 | PC.NURSE ---
Patient status changed to PUI and swab specimen collected. Patient moved to room 331 and placed on droplet isolation precautions.
[2020-04-01] MEDS: NICOTINE (*PBKC) 21 MG PATCH 1 PATCH TRANSDERM (17:41)
[2020-04-01 18:26] LABS: Glucose Point of Care 428 (65-105)
[2020-04-01] MEDS: SENNOSIDES 8.6 MG TABLET PO (21:18)
[2020-04-02 02:43] VITALS: BP 146/76; PULSE 73; RESP 20; TEMP 36.9; O2SAT 96
[2020-04-02 03:39] LABS: Glucose Point of Care 335 (65-105)
[2020-04-02 03:41] VITALS: PULSE 78; RESP 20
[2020-04-02] MEDS: ALBUTEROL SULFATE (*SP) INHALER 1 PUFF (03:41)
[2020-04-02 06:00] VITALS: BP 142/65; PULSE 70; RESP 20; TEMP 37.2; O2SAT 94
[2020-04-02] MEDS: predniSONE 20 MG, predniSONE 10 MG 30 MG PO (08:54)
[2020-04-02] MEDS: PANTOPRAZOLE 40 MG TABLET PO (08:54)
[2020-04-02] MEDS: LOVASTATIN 10 MG TABLET PO (08:55)
[2020-04-02] MEDS: lisinopriL 20 MG TABLET PO (08:55)
[2020-04-02] MEDS: FLUOXETINE HCL 20 MG CAP 40 MG PO (08:55)
[2020-04-02] MEDS: ENOXAPARIN 40 MG/0.4 ML SYRINGE SUB-Q (08:56)
[2020-04-02] MEDS: SPIRONOLACTONE 25 MG TABLET PO (08:56)
[2020-04-02 09:28] LABS: Glucose Point of Care 175 (65-105)
[2020-04-02] MEDS: TOLNAFTATE 1% POWDER 45 GM BTL 1 APPLIC TOPICAL (09:28)
[2020-04-02] MEDS: SILVERGEL (ELTA) 45 ML 1 APPLIC TOPICAL (09:28)
[2020-04-02 09:40] VITALS: O2SAT 92
[2020-04-02 10:00] VITALS: BP 138/66; PULSE 70; RESP 18; TEMP 36.3; O2SAT 92
[2020-04-02 11:02] LABS: Glucose Point of Care 158 (65-105)
[2020-04-02 12:56] LABS: SARS-CoV-2 RNA PCR Negative
--- NOTE | 2020-04-02 13:46 | PM.DS ---
DS: Admitting Diagnosis Admitting Diagnosis Admitting Diagnosis: Chronic obstructive pulmonary disease with (acute) exacerbation DS: Discharge Diagnosis Discharge Diagnosis (1) Acute exacerbation of chronic obstructive pulmonary disease: Code(s): J44.1 - Chronic obstructive pulmonary disease with (acute) exacerbation Status: Acute Assessment and Plan: -----Copd excerbation with pneumonia. Can be discharged today on oral levaquin and tapering dose of steroids. (2) Acute respiratory failure with hypoxia and hypercarbia: Code(s): J96.01 - Acute respiratory failure with hypoxia; J96.02 - Acute respiratory failure with hypercapnia Status: Acute Assessment and Plan: ----Improving back to 3 liters which is her baseline (3) Acute kidney injury: Code(s): N17.9 - Acute kidney failure, unspecified Status: Acute Assessment and Plan: -----creat is 1.1 (4) Right upper lobe pneumonia: Code(s): J18.9 - Pneumonia, unspecified organism Status: Acute Assessment and Plan: -----continue Levaquin Iv, BC are negative. Covid test is negative. Cxr still shows pneumonia, pt was treated with nebulisers, levaquin iv for 4 days transtition to oral levaquin and tapering dose of prednisone. Continue abx at home. Cxr shows cardiomegaly and mild pulmonary edema, pt discharged on lasix for a few days. (5) Joint pain: Code(s): M25.50 - Pain in unspecified joint Status: Acute Assessment and Plan: -----Pt had orthopedic shots of her knees pt to continue PT/ OT at home. Adviced to move. (6) Morbid obesity: Code(s): E66.01 - Morbid (severe) obesity due to excess calories Status: Acute Assessment and Plan: -----would benefit from weight loss surgery. Her pannus has some breakdown which wound care has been following. Continue with their recommendations. (7) Diabetes mellitus type 2 in obese: Code(s): E11.69 - Type 2 diabetes mellitus with other specified complication; E66.9 - Obesity, unspecified Status: Chronic Assessment and Plan: -----last A1c in December was 7.5. Continue sliding scale insulin at this time. A1c is 6.8 DS: Summary Time Spent with Patient Time attestation: Total time spent providing and/or coordinating discharge services:40 minutes on day of dischrage Exam Narrative: Exam Narrative: General: Morbidly obese Neck: supple Neuro: Alert and oriented x4 CV:RRR Resp: Decreased breath sounds at bases Abd: Soft, and obese. Pannus with significant yeast and breakdown. Pressure sores near groin area Extremities: No pitting edema DS: Data Data Completed and Pending Labs on day of discharge: Labs from last 24 hours 04/02/20 04/02/20 04/01/20 10:56 09:01 21:23 POC Capillary Glucose 158 H 175 H 335 H SARS-CoV-2 RNA (RT-PCR) 04/01/20 04/01/20 17:38 13:25 POC Capillary Glucose 428 H SARS-CoV-2 RNA (RT-PCR) Negative Preliminary micro results at discharge 04/01/20 04:31 Sputum Culture - Preliminary Sputum 03/28/20 21:14 Blood Culture - Preliminary Blood 03/28/20 23:03 Blood Culture - Preliminary Blood Discharge Plan Discharge Attending physician on discharge: Quin Claire Consulting providers: Naman Costa ; Aaron Lewis ; Edy Canchola Discharging Clinician: Quin Claire Anticipated Discharge Date/Time: 04/02/20 15:00 Patient Disposition: Home Health Service Activity: as tolerated Diet: heart healthy and diabetic Discharge Instructions: Urology Recommendations: Follow up with an Plant Protection Officer for further evaluation and workup for Adrenal Mass. Call to schedule appointment with Dr. Cabezas for evaluation of Adrenal mass and to schedule repeat imaging per Dr. Cabezas recommendation. per care coordination, Home Health has been arranged for RN, PT/OT evaluation and treatment throug
[2020-04-02 14:00] VITALS: BP 153/62; PULSE 90; RESP 20; TEMP 36.2; O2SAT 93
== END 2020-04-02 15:40 | disposition home health service (06) | DRG 139 ==
LOC: ANHED 18:16 → ANHIMU 18:54 → ANH3MEDSUR 03-30 18:59
PROVIDERS: Emergency Medicine Emergency Medical Services; Internal Medicine; Physician Assistant; Admitting Provider Family Medicine; Emergency Provider Emergency Medicine; PCP Family Medicine; Visit Provider Family Medicine
DX: J18.9 Pneumonia, unspecified organism (principal); J44.1 Chronic obstructive pulmonary disease with (acute) exacerbation; J96.01 Acute respiratory failure with hypoxia; J96.02 Acute respiratory failure with hypercapnia; Z20.828 Contact with and (suspected) exposure to other viral communicable diseases; J44.0 Chronic obstructive pulmonary disease with (acute) lower respiratory infection; N17.9 Acute kidney failure, unspecified; M17.0 Bilateral primary osteoarthritis of knee; E87.1 Hypo-osmolality and hyponatremia; E11.69 Type 2 diabetes mellitus with other specified complication; G47.33 Obstructive sleep apnea (adult) (pediatric); E78.5 Hyperlipidemia, unspecified; E27.8 Other specified disorders of adrenal gland; L89.899 Pressure ulcer of other site, unspecified stage; E66.01 Morbid (severe) obesity due to excess calories; F17.210 Nicotine dependence, cigarettes, uncomplicated; Z68.43 Body mass index [BMI] 50.0-59.9, adult
CPT/HCPCS: 36415; 36600; 71045; 71275; 73030; 73560; 74160; 80048; 80053; 81003; 82375; 82805; 83036; 83050; 83605; 83880; 84484; 85025; 85027; 85380; 85610; 85730; 86140; 87040; 87070; 87205; 87635; 93005; 93971; 94003; 94640; 96361; 96365; 96375; 97110; 97162; 97165; 97530; 97535; 99285; A9270; C9803; J0131; J1040; J1650; J1815; J1956; J2920; J2930; J7030; J7120; J7512; Q9967; U0003

== ENCOUNTER 2020-05-07 13:10 | Inpatient (IN) | payer OTHER, SELFPAY ==
[2020-05-07] VITALS (8 sets, daily range): BP systolic 103–128; BP diastolic 46–61; PULSE 70–82; RESP 15–22; TEMP 36.5–37; O2SAT 94–99; BMI 54.3
--- NOTE | ~2020-05-07 | CT_ITS ---
EXAMINATION: CT chest high resolution wo pr DATE: 05/10/2020 12:46 INDICATION: Multiple COPD exacerbations. Chronic hypoxia. TECHNIQUE: Computed tomography (CT) of the chest was performed without intravenous contrast. The dose -length product was 921.77 mGy-cm. Automated exposure control and iterative reconstruction technique were employed. COMPARISON: CT dated 03/28/2020 FINDINGS: Small bilateral pleural effusions, loculated on the left. Cardiomegaly. No thoracic lymphad enopathy. There is atherosclerosis. There is a fat-containing 2.4 cm left adrenal myelolipoma there i s emphysema. Interval development of extensive patchy bilateral groundglass opacification, consistent with pneumonia. IMPRESSION: 1. Patchy bilateral groundglass opacification predominantly upper lobe, consistent with pneumonia. 2: Small pleural effusions, possibly loculated on the left. 3: Cardiomegaly. Reviewed, dictated and finalized at location B. IMPRESSION: 1. Patchy bilateral groundglass opacification predominantly upper lobe, consist ent with pneumonia. 2: Small pleural effusions, possibly loculated on the left. 3: Cardiomegaly.
--- NOTE | ~2020-05-07 | XR_ITS ---
EXAMINATION: XR chest 2V DATE: 05/07/2020 14:10 INDICATION: Shortness of breath. TECHNIQUE: Frontal and lateral views of the chest were obtained. COMPARISON: Chest single view 04/01/2020, CT abdomen 03/30/2020 FINDINGS: There are airspace opacities in the lower lung zones. No pleural effusion or pneumothorax. Cardiomegaly is noted. IMPRESSION: 1. Airspace opacities in the lower lung zones, consistent with atelectasis or less likely pneumonia. 2. Cardiomegaly. Reviewed, dictated and finalized at location A. IMPRESSION: 1. Airspace opacities in the lower lung zones, consistent with atelectasis or l ess likely pneumonia. 2. Cardiomegaly.
--- NOTE | 2020-05-07 13:38 | ECG_ITS ---
Measurements Intervals Wright Rate: 72 P: -4 WA: 140 QRS: -14 QRSD: 79 T: 26 QT: 388 QTc: 426 Interpretive Statements SINUS RHYTHM ATRIAL PREMATURE COMPLEX LOW QRS VOLTAGE- DIFFUSE LEADS POOR R WAVE PROGRESSION, ANTERIOR LEADS BASELINE ARTIFACT- I, III, AVL, AVF BORDERLINE ECG Electronically Signed On 05-07-2020 14:52:09 CDT by Armani Muro D.O.
[2020-05-07] MEDS: SODIUM CHLORIDE 0.9% IV 1,000 ML 999 ML IV CONT (14:00)
[2020-05-07] MEDS: methylPREDNISolone SOD SUCC 125 MG VIAL IV PUSH (14:00)
[2020-05-07 14:01] LABS: Basophils Absolute Auto 0.1 K/mm3 (0.0-0.1); Basophils Percent Auto 0.4 % (0.2-1.2); Eosinophils Absolute Auto 0.2 K/mm3 (0-0.3); Eosinophils Percent Auto 1.9 % (0-4.4); Hematocrit 32.2 % (37.0-47.0); Hemoglobin 9.6 g/dL (12.0-15.0); Immature Granulocyte Absolute 0.09 K/mm3 (0.00-0.031); Immature Granulocyte Percent A 0.8 % (0-0.5); Lymphocytes Absolute Auto 1.77 K/mm3 (0.9-3.2); Lymphocytes Percent Auto 15.1 % (18.3-44.2); Mean Corpuscular HGB Conc 29.8 g/dl (32-36); Mean Corpuscular Hemoglobin 25.5 pg (26-34); Mean Corpuscular Volume 85.6 fl (80-100); Monocytes Absolute Auto 0.9 K/mm3 (0.1-0.6); Monocytes Percent Auto 7.3 % (2.6-8.5); Neutrophils Absolute Auto 8.8 K/mm3 (1.3-6.7); Neutrophils Percent Auto 74.5 % (45.5-73.1); Platelet Count Result 345 k/mm3 (150-375); Red Blood Count 3.76 M/mm3 (4.2-5.4); Red Cell Distribution Width 16.5 % (11.5-14.5); White Blood Count 11.8 K/mm3 (4.5-10.0)
[2020-05-07 14:07] LABS: Hypochromasia 1+ (NORMAL); Platelet Estimate Adequate (Adequate)
[2020-05-07 14:13] LABS: Blood Urea Nitrogen 12 mg/dL (7-17); Calcium 8.4 mg/dL (8.4-10.2); Carbon Dioxide 32 mmol/L (22-30); Chloride 99 mmol/L (98-107); Estimated CRCL calculation 71 ml/min; Estimated Glomerular Filt Rate 57; Glucose 112 mg/dL (65-105); Potassium 4.2 mmol/L (3.4-5.0); Sodium 135 mmol/L (137-145)
[2020-05-07] MEDS: IPRATROPIUM BR 0.02% INH SOLN 0.5 MG/2.5 ML VIAL INHALATION ×2 (14:28→20:47)
[2020-05-07] MEDS: ALBUTEROL SULFATE NEB 2.5 MG/0.5 ML INH 5 MG INHALATION ×2 (14:28→20:47)
--- NOTE | 2020-05-07 16:10 | ED.LOWEXIN ---
HPI - Extremity Injury (Lower) General Chief Complaint: Extremity Injury, Lower Stated Complaint: KNEE PAIN Time Seen by Provider: 05/07/20 13:29 Source: patient, EMS and old records reviewed Mode of arrival: EMS Limitations: no limitations History of Present Illness HPI Narrative: Patient is a 59-year-old female who presents from home per EMS for evaluation of shortness of breath patient with history of COPD and active tobacco abuse patient presents noting aching pain to the bilateral knees which is chronic in nature sees orthopedic surgery for this complaint patient on arrival to emergency department does note feeling dyspneic denies any new URI symptoms or any chest pain patient notes that her nebulizer is currently broken and that she only has 1 of her inhalers patient denies injury or trauma Related Data Home Medications Medication Instructions Recorded Confirmed budesonide-formoterol HFA 160 1 puff INHALATION Q12H PRN 11/07/19 05/05/20 mcg-4.5 mcg/actuation aerosol inhaler fluoxetine 20 mg capsule 40 mg PO DAILY cap 11/07/19 05/05/20 lisinopril 20 mg tablet 20 mg PO DAILY 11/07/19 05/05/20 spironolactone 25 mg tablet 25 mg PO DAILY 11/07/19 05/05/20 ipratropium-albuterol 3 ml INHALATION QID PRN 03/28/20 05/05/20 nystatin 1 applic TOPICAL BID 03/28/20 05/05/20 sodium chloride [Nasal Benton 2 spray NASAL Q4H PRN 03/28/20 05/05/20 (sodium chloride)] Allergies Allergy/AdvReac Type Severity Reaction Status Date / Time ampicillin AdvReac Intermediate Nausea Verified 05/05/20 16:05 azithromycin AdvReac Intermediate Vomiting Verified 05/05/20 16:05 codeine AdvReac Intermediate Vomiting Verified 05/05/20 16:05 atorvastatin AdvReac Mild Muscle Pain Verified 05/05/20 16:05 tramadol AdvReac vommiting Verified 05/05/20 16:05 Erythromycin/Sulfisoxazole Allergy Intermediate Unknown Uncoded 04/21/20 09:11 Review of Systems Review of Systems: All systems reviewed & are unremarkable except as noted in HPI and below PMFSH Past Medical History Medical History Bilateral cataracts Maturing Cellulitis and abscess of buttock July 2019 Diabetes mellitus type 2 in obese Essential hypertension Hyperlipidemia associated with type 2 diabetes mellitus A1c of 05 August 2019 Morbid obesity with BMI of 50.0-59.9, adult Nicotine dependence, cigarettes, with unspecified nicotine-induced disorders Obstructive sleep apnea With home CPAP with intermittent use Osteoarthritis of both knees Surgical History Surgical History History of ectopic Family History Family History Father Suicide Mother , At age 60 Cerebral aneurysm Cerebrovascular accident Coronary artery disease Sibling Hypertension Sister Social History Social History Social History: Primary care physician: Dr. Reuben Mcclain Code status: Full code per EMR Smoking packs per day: 1.5 Smoking cigarettes per day: 30.0 Years smoked: 50 Smoking pack-years: 75.00 Smoking status: Current every day smoker Tobacco type: cigarettes Additional smoking assessment comments: The patient started smoking a 7. Alcohol intake: never Substance use: current Substance use type: marijuana Last use: Daily marijuana use. Additional living arrangements comments: She reports that she lives alone. She recently kicked her daughter out of the house. She is essentially wheelchair dependent and transfers to a bedside commode. Additional occupation/education comments: Disabled. Gender identity (if verbalized by the patient): Female Spiritual care concerns: No Exam Narrative: Exam Narrative: GENERAL: Well-appearing, morbidly obese, and in no acute distress. HEAD: Normocephalic, atraumatic
--- NOTE | 2020-05-07 17:00 | PM.IMHP ---
H&P: HPI History of Present Illness Chief complaint: Shortness of breath and knee pain. Narrative: Juanita Gil is a chronically debilitated 59-year-old female smoker with chronic respiratory failure on home oxygen, obstructive sleep apnea, type 2 diabetes mellitus, hypertension, and morbid obesity presented to the emergency department earlier today via EMS from home for evaluation of shortness of breath and knee pain. She is known to the hospitalist service and fact was admitted to us on 03/28/2020 after she presented to the emergency department with the exact same complaints. At that time she was treated for a COPD exacerbation and she was also seen in consultation by Dr. Lewis given severe bilateral knee pain. She was found to have advanced degenerative disease of both knees but due to the fact that she is a non ambulator, she is not a candidate for surgery. She did have injections in both knees which helped for a period of time, but she is once again having daily pain in her knees that she has a hard time describing but states that it is severe and rates it a 9/10. When she has pain she typically will take 5 to 6 Aleve added time, which seems to help somewhat. Regarding her shortness of breath, she admits that she is short of breath a majority of the time with activity however over the past 1 week she has felt short of breath with very little movement. She goes on to say that her nebulizer broke about a week ago and she has been more short of breath since that time. She has been out of her rescue inhaler for quite some time as well, as it seems that she uses it inappropriately and way more than she should. She continues to smoke and has a chronic smoker's cough that is productive anywhere between clear to greenish yellow phlegm, both of which are unchanged. She has not had fever, chills, or sweats. She denies recent travel and sick contacts. No chest pain or pleuritic pain. She denies edema and history of venous thromboembolism. At the time my evaluation her main complaint is of pain in her left knee that is ?off the charts.? She denies any acute injuries to the knee, redness, or swelling. Review of Systems Review of Systems: Narrative: Twelve systems were reviewed with pertinent positives and negatives as per HPI. No cold or flu symptoms. She denies nausea and vomiting. No diarrhea. Denies dysuria. States compliant with her CPAP most nights. No blood or mucus in the stool. Except as documented, all other systems were reviewed and are negative. FORMERLY [facility], [facility] Past Medical History Medical History (Updated 05/07/20 @ 17:53 by Moon Madden PA-C) Bilateral cataracts Maturing. Cellulitis and abscess of buttock (~07/2019) Chronic anemia Chronic pain of both knees Followed by Dr. Lewis. Imaging has showed advanced degenerative disease of both knees with flexion contracture and varus deformity. As she is a non ambulator, she is not a candidate for surgery. She last received injections at the beginning of March 2020. Chronic respiratory failure with hypoxia, on home oxygen therapy Depression with anxiety Essential hypertension Gastroesophageal reflux disease Hyperlipidemia Morbid obesity with BMI of 50.0-59.9, adult Nicotine dependence Obstructive sleep apnea With intermittent CPAP use. Osteoarthritis of both knees Type 2 diabetes mellitus Hemoglobin A1c was 8% in July 2019. Surgical History Surgical History History of ectopic Family History Family History Father Suicide Mother , At age 60 Cerebral aneurysm Cerebrovascular accident Coronary artery disease Sibling Hypertension Sister Social History Social History (Updated 05/07/20 @ 22:32 by Moon Madden PA-C) Social History: Primary care physician: Dr. Reuben Mcclain. Surrogate decision maker: Carmelo Perez
--- NOTE | 2020-05-07 17:02 | PCRCNOTE ---
ABG ATTEMPTED X3, TWICE USING THE DOPPLER. PT. REFUSING TO BE STUCK ANYMORE AT THIS TIME. ISMAEL MENDIOLA NOTIFIED.
--- NOTE | 2020-05-07 18:50 | ADMGEN ---
This patient, Juanita Gil, was admitted to 2 Medical Room 253-01. Patient/family oriented to hospital policies and general routines including ID bracelet, bed and alarms, visiting hours, pain management, procedures, bathroom and other care routines, personal items, smoking policy, room service/diet, and visiting hours. Valuables list has been completed. Information on how to activate the Rapid Response Team has been discussed. Patient/Family are encouraged to report perceived risks to care and to ask questions if they do not understand what they are told or what they should do.
[2020-05-07] MEDS: SODIUM CHLORIDE 0.9% IV 1,000 ML 75 ML IV CONT (21:27)
[2020-05-07] MEDS: methylPREDNISolone SOD SUCC 125 MG VIAL 60 MG IV PUSH (21:28)
[2020-05-07] MEDS: FAMOTIDINE 20 MG/2 ML VIAL IV PUSH (21:28)
[2020-05-07] MEDS: NICOTINE (*PBKC) 21 MG PATCH 1 PATCH TRANSDERM (23:10)
[2020-05-08] VITALS (16 sets, daily range): BP systolic 122–154; BP diastolic 51–84; PULSE 72–91; RESP 17–22; TEMP 35.8–36.8; O2SAT 91–96
[2020-05-08] MEDS: ALBUTEROL SULFATE NEB 2.5 MG/0.5 ML INH 5 MG INHALATION ×3 (02:09→21:11)
[2020-05-08] MEDS: IPRATROPIUM BR 0.02% INH SOLN 0.5 MG/2.5 ML VIAL INHALATION ×3 (02:10→21:11)
[2020-05-08 05:38] LABS: Basophils Percent Auto 0.2 % (0.2-1.2); Hematocrit 34.6 % (37.0-47.0); Hemoglobin 9.8 g/dL (12.0-15.0); Immature Granulocyte Absolute 0.14 K/mm3 (0.00-0.031); Immature Granulocyte Percent A 1.4 % (0-0.5); Lymphocytes Absolute Auto 0.59 K/mm3 (0.9-3.2); Mean Corpuscular HGB Conc 28.3 g/dl (32-36); Mean Corpuscular Hemoglobin 24.8 pg (26-34); Mean Corpuscular Volume 87.6 fl (80-100); Mean Platelet Volume 10.5 fl (7.4-10.4); Monocytes Absolute Auto 0.1 K/mm3 (0.1-0.6); Monocytes Percent Auto 1.2 % (2.6-8.5); Neutrophils Absolute Auto 8.9 K/mm3 (1.3-6.7); Neutrophils Percent Auto 91.2 % (45.5-73.1); Platelet Count Result 362 k/mm3 (150-375); Red Blood Count 3.95 M/mm3 (4.2-5.4); Red Cell Distribution Width 16.3 % (11.5-14.5); White Blood Count 9.8 K/mm3 (4.5-10.0)
[2020-05-08 05:58] LABS: Blood Urea Nitrogen 16 mg/dL (7-17); Calcium 8.4 mg/dL (8.4-10.2); Carbon Dioxide 28 mmol/L (22-30); Chloride 100 mmol/L (98-107); Estimated CRCL calculation 70 ml/min; Estimated Glomerular Filt Rate 57; Glucose 294 mg/dL (65-105); Potassium 4.5 mmol/L (3.4-5.0); Sodium 134 mmol/L (137-145)
[2020-05-08 06:17] LABS: Hemoglobin A1C 7.2 % (<5.7)
[2020-05-08] MEDS: methylPREDNISolone SOD SUCC 125 MG VIAL 60 MG IV PUSH ×2 (06:40→13:40)
[2020-05-08 07:12] LABS: Anisocytosis 1+ (NORMAL); Hypochromasia 1+ (NORMAL); Platelet Estimate Adequate (Adequate)
[2020-05-08 07:46] LABS: Glucose Point of Care 280 (65-105)
[2020-05-08] MEDS: SODIUM CHLORIDE 0.9% IV 1,000 ML 75 ML IV CONT (10:18)
[2020-05-08] MEDS: INSULIN ASPART (*BKC) 100 UNITS/ML SUB-Q ×4 (10:20→22:17)
[2020-05-08] MEDS: ENOXAPARIN 40 MG/0.4 ML SYRINGE SUB-Q (10:22)
[2020-05-08] MEDS: MELOXICAM 7.5 MG TABLET 15 MG PO (10:22)
[2020-05-08] MEDS: lisinopriL 20 MG TABLET PO (10:23)
[2020-05-08] MEDS: SPIRONOLACTONE 25 MG TABLET PO (10:23)
[2020-05-08] MEDS: FLUoxetine HCL 20 MG CAPSULE 40 MG PO (10:23)
[2020-05-08] MEDS: LOVASTATIN 10 MG TABLET PO (10:24)
[2020-05-08] MEDS: NICOTINE (*PBKC) 21 MG PATCH 1 PATCH TRANSDERM (10:24)
[2020-05-08] MEDS: PANTOPRAZOLE 40 MG TABLET PO (10:24)
[2020-05-08] MEDS: FUROSEMIDE 20 MG TABLET PO (10:24)
[2020-05-08] MEDS: TOLNAFTATE 1% POWDER 45 GM BTL 1 APPLIC TOPICAL ×2 (10:25→20:22)
[2020-05-08] MEDS: SILVER SULFADIAZINE 1% CR 50 GM JAR (*BKC) 1 APPLIC TOPICAL ×2 (10:25→17:20)
[2020-05-08 11:26] LABS: Glucose Point of Care 311 (65-105)
--- NOTE | 2020-05-08 14:49 | PM.IMPN ---
Progress Note: A&P Assessment and Plan (1) COPD exacerbation: Code(s): J44.1 - Chronic obstructive pulmonary disease with (acute) exacerbation Status: Acute Assessment and Plan: -----patient is feeling relief with the nebulizer and IV steroids. At this time we will continue the IV steroids since she is still wheezing. No antibiotics indicated at this time. I spoke with the patient about the importance of stopping smoking since she is not happy that she is hospitalized again for COPD exacerbation. We also talked about getting a nebulizer from [place] [facility]. Continue breathing treatments (2) Chronic pain of both knees: Code(s): M25.561 - Pain in right knee; M25.562 - Pain in left knee; G89.29 - Other chronic pain Status: Acute Assessment and Plan: -----chronic and ongoing, she does not mention this much today on my exam. She would benefit from weight loss. No notable effusion or erythema to suggest underlying infection or gout. (3) Chronic respiratory failure with hypoxia, on home oxygen therapy: Code(s): J96.11 - Chronic respiratory failure with hypoxia; Z99.81 - Dependence on supplemental oxygen Status: Acute Assessment and Plan: -----continue steroids as stated above. She is at her baseline oxygen. (4) Obstructive sleep apnea: Code(s): G47.33 - Obstructive sleep apnea (adult) (pediatric) Status: Acute Assessment and Plan: -----continue CPAP. (5) Nicotine dependence: Code(s): F17.200 - Nicotine dependence, unspecified, uncomplicated Status: Acute Assessment and Plan: -----we had a long discussion about the importance of not smoking. She is currently utilizing a nicotine patch.\ (6) Essential hypertension: Code(s): I10 - Essential (primary) hypertension Status: Acute Assessment and Plan: -----last blood pressure 154/65. Continue Lasix, lisinopril, and spironolactone (7) Type 2 diabetes mellitus: Code(s): E11.9 - Type 2 diabetes mellitus without complications Status: Acute Assessment and Plan: -----the patient states she is always borderline diabetic and that she follows closely with her primary. She does not want to be on any medication and she has spoke with her primary about this and they are just watching her blood glucose. She understands that steroids can worsen this. She probably does have borderline diabetes that has worsened with the steroids she received in the past few months and her ongoing steroid use now that she is hospitalized. Continue SSI. Time Spent With Patient Time with patient: 25 - 35 minutes Subjective Date/time seen: 05/08/20 14:49 Interval history: Pt is a 59 year old female here for COPD exacerbation. Patient was seen today and states that she is feeling better with the nebulizer. She feels like she is closer to her baseline although she always has chronic shortness of breath and chronic cough. She said her nebulizer has been broken and that is why she feels the way she does. She denies chest pain, fevers, chills, nausea or vomiting. She is eating and drinking okay. She said she is essentially bed-bound and she has a home health worker come in and help her from time to time. She alternates between constipation and diarrhea and today she is more constipated. Review of Systems Review of Systems: All systems reviewed & are unremarkable except as noted in HPI and below Exam Narrative: Exam Narrative: General: Well developed well nourished patient resting comfortably in bed in NAD HEENT: normocephalic Neck: supple Neuro: Alert and oriented x4 CV:RRR Resp: Significant wheezing throughout both lung rand. Abd: Soft, obese, non distended. No pain to palpation. Positive bowel sounds Extremities: No swelling, erythema, or pain to palpation. Some chronic erythema from likely venous stasis. Objective Data Vital
[2020-05-08] MEDS: methylPREDNISolone SOD SUCC 40 MG VIAL IV PUSH (17:18)
[2020-05-08 17:29] LABS: Glucose Point of Care 319 (65-105)
[2020-05-08 20:45] LABS: Glucose Point of Care 376 (65-105)
[2020-05-08] MEDS: INSULIN GLARGINE (*BKC) 100 UNITS/ML 10 UNITS SUB-Q (22:16)
[2020-05-08] MEDS: polyethylene glycoL 3350 17 GM POWD.PACK PO (22:16)
--- NOTE | 2020-05-08 22:43 | ECHO_ITS ---
Patient Info Name: Juanita Gil Age: 59 years : 1960 Gender: Female Ht: 61 in Wt: 287 lbs BSA: 2.46 m2 HR: 96 bpm BP: 149 / 51 mmHg Heart Rhythm: Sinus Rhythm Technical Quality: Poor Exam Date: 05/08/2020 8:30 AM Exam Location: [facility] Patient Status: Outpatient Admit Date: 05/07/2020 Staff Ordering Physician: Moon Madden PA-C Jaw Skinner: Suzanne Rao RDCS Attending Provider: Pati León PA-C Referring Physician: Chano AHUMADA; Exam Type: CA echo dop color flow w con Study Info Complete two-dimensional, color flow and Doppler transthoracic echocardiogram is performed with contrast to opacify the left ventricle and to improve the deliniation of the left ventricle endocardial borders. Contrast/Agitated Saline Contrast/Ag. Saline: Definity Amount: 2.00 ml Reason for Poor Study: poor echocardiographic windows Summary 1. Definity contrast injected to improve visualization. 2. Left ventricular systolic function is normal, estimated at 60-65%. 3. Minor systolic gradient noted across the aortic valve structure of which was difficult to visualize. 4. Difficult quality exam presumably due to obese body habitus. Left Ventricle Left ventricular systolic function is normal, estimated at 60-65%. The left ventricular diastolic function is normal. Definity contrast injected to improve visualization. Right Ventricle Right ventricular chamber dimension is normal. Left Atria Left atrial chamber dimension is normal. Right Atria Right atrial chamber dimension is not well visualized. Aortic Valve The aortic valve is not well visualized. Minor systolic gradient noted across the aortic valve structure of which was difficult to visualize. Pulmonic Valve The pulmonic valve is not well visualized. Mitral Valve The mitral valve has normal leaflets. The mitral valve annulus is mildly calcified. Tricuspid Valve The tricuspid valve leaflets are not well visualized. Pericardium/Pleural The pericardium appears normal. Aorta The aortic root size at the sinus of Valsalva is normal. Left Ventricular Outflow Tract Name Value Normal LVOT 2D LVOT Diameter 2.21 cm LVOT Doppler LVOT Peak Gradient 4 mmHg LVOT Mean Gradient 2 mmHg LVOT VTI 26.08 cm LVOT VTI/AV VTI Ratio 0.74 LVOT Stroke Volume 99.98 ml LVOT CO 6.70 l/min LVOT CI 2.73 L/min/m2 Pulmonic Valve Name Value Normal PV Doppler PV Peak Gradient 8 mmHg Mitral Valve Name Value Normal ---------
[2020-05-09] VITALS (18 sets, daily range): BP systolic 125–162; BP diastolic 45–87; PULSE 65–84; RESP 18–22; TEMP 36.1–36.4; O2SAT 87–95
[2020-05-09] MEDS: ALBUTEROL SULFATE NEB 2.5 MG/0.5 ML INH 5 MG INHALATION ×4 (02:19→21:06)
[2020-05-09] MEDS: IPRATROPIUM BR 0.02% INH SOLN 0.5 MG/2.5 ML VIAL INHALATION ×4 (02:19→21:06)
[2020-05-09 02:43] LABS: Glucose Point of Care 275 (65-105)
[2020-05-09 02:56] LABS: Glucose Point of Care 304 (65-105)
[2020-05-09 02:56] LABS: Glucose Point of Care 316 (65-105)
[2020-05-09 05:30] LABS: Hematocrit 33.9 % (37.0-47.0); Hemoglobin 10.1 g/dL (12.0-15.0); Mean Corpuscular HGB Conc 29.8 g/dl (32-36); Mean Corpuscular Hemoglobin 25.6 pg (26-34); Mean Corpuscular Volume 85.8 fl (80-100); Mean Platelet Volume 10.8 fl (7.4-10.4); Platelet Count Result 378 k/mm3 (150-375); Red Blood Count 3.95 M/mm3 (4.2-5.4); Red Cell Distribution Width 16.4 % (11.5-14.5); White Blood Count 17.5 K/mm3 (4.5-10.0)
[2020-05-09 05:46] LABS: Blood Urea Nitrogen 22 mg/dL (7-17); Calcium 8.8 mg/dL (8.4-10.2); Carbon Dioxide 29 mmol/L (22-30); Chloride 97 mmol/L (98-107); Estimated CRCL calculation 70 ml/min; Estimated Glomerular Filt Rate 57; Glucose 268 mg/dL (65-105); Potassium 4.4 mmol/L (3.4-5.0); Sodium 131 mmol/L (137-145)
[2020-05-09] MEDS: methylPREDNISolone SOD SUCC 40 MG VIAL IV PUSH ×4 (05:47→21:59)
[2020-05-09] MEDS: ENOXAPARIN 40 MG/0.4 ML SYRINGE SUB-Q (08:46)
[2020-05-09] MEDS: NICOTINE (*PBKC) 21 MG PATCH 1 PATCH TRANSDERM (08:47)
[2020-05-09] MEDS: MELOXICAM 7.5 MG TABLET 15 MG PO (08:48)
[2020-05-09] MEDS: FUROSEMIDE 20 MG TABLET PO (08:48)
[2020-05-09] MEDS: PANTOPRAZOLE 40 MG TABLET PO (08:48)
[2020-05-09] MEDS: FLUoxetine HCL 20 MG CAPSULE 40 MG PO (08:48)
[2020-05-09] MEDS: LOVASTATIN 10 MG TABLET PO (08:48)
[2020-05-09] MEDS: SPIRONOLACTONE 25 MG TABLET PO (08:48)
[2020-05-09] MEDS: lisinopriL 20 MG TABLET PO (08:49)
[2020-05-09] MEDS: TOLNAFTATE 1% POWDER 45 GM BTL 1 APPLIC TOPICAL ×2 (08:51→22:04)
[2020-05-09] MEDS: SILVER SULFADIAZINE 1% CR 50 GM JAR (*BKC) 1 APPLIC TOPICAL ×2 (08:51→18:24)
[2020-05-09] MEDS: INSULIN ASPART (*BKC) 100 UNITS/ML SUB-Q ×3 (10:15→18:22)
[2020-05-09 13:17] LABS: Glucose Point of Care 321 (65-105)
--- NOTE | 2020-05-09 14:40 | PM.IMPN ---
Progress Note: A&P Assessment and Plan (1) COPD exacerbation: Code(s): J44.1 - Chronic obstructive pulmonary disease with (acute) exacerbation Status: Acute Assessment and Plan: -----patient is feeling relief with the nebulizer and IV steroids. I have decreased IV steroids today and will see how she does overnight. They are increasing her glucose significantly so her insulin has been adjusted and Lantus has been started. No antibiotics indicated at this time especially since she is improving without them. I spoke with the patient about the importance of stopping smoking since she is not happy that she is hospitalized again for COPD exacerbation. We also talked about getting a nebulizer from [facility]. Continue breathing treatments (2) Chronic pain of both knees: Code(s): M25.561 - Pain in right knee; M25.562 - Pain in left knee; G89.29 - Other chronic pain Status: Acute Assessment and Plan: -----chronic and ongoing, she does not mention this much today on my exam. She would benefit from weight loss. No notable effusion or erythema to suggest underlying infection or gout. (3) Chronic respiratory failure with hypoxia, on home oxygen therapy: Code(s): J96.11 - Chronic respiratory failure with hypoxia; Z99.81 - Dependence on supplemental oxygen Status: Acute Assessment and Plan: -----continue steroids as stated above. She is at her baseline oxygen. (4) Obstructive sleep apnea: Code(s): G47.33 - Obstructive sleep apnea (adult) (pediatric) Status: Acute Assessment and Plan: -----continue CPAP. (5) Nicotine dependence: Code(s): F17.200 - Nicotine dependence, unspecified, uncomplicated Status: Acute Assessment and Plan: -----we had a long discussion about the importance of not smoking. She is currently utilizing a nicotine patch. (6) Essential hypertension: Code(s): I10 - Essential (primary) hypertension Status: Acute Assessment and Plan: -----last blood pressure 162/87. Continue Lasix, lisinopril, and spironolactone (7) Type 2 diabetes mellitus: Code(s): E11.9 - Type 2 diabetes mellitus without complications Status: Acute Assessment and Plan: -----the patient states she is always borderline diabetic and that she follows closely with her primary. She does not want to be on any medication and she has spoke with her primary about this and they are just watching her blood glucose. She understands that steroids can worsen this. She probably does have borderline diabetes that has worsened with the steroids she received in the past few months and her ongoing steroid use now that she is hospitalized. I have increased her sliding scale insulin, added basal insulin, and decrease her steroids. The patient has been running pretty high which is likely worsened due the steroids. We will see how she does with these Changes and may adjust them further tomorrow Subjective Date/time seen: 05/09/20 14:40 Interval history: Pt is a 59 year old female here for COPD exacerbation. Patient was today and states she is doing okay. She feels better since she has been admitted to the hospital. She says she always feels wheezy and the breathing treatments helped. She feels a bit constipated today. She denies nausea, vomiting, fevers, chills, chest pain, lightheadedness, dizziness and she is eating okay. She feels close to her baseline today Exam Narrative: Exam Narrative: General: Obese patient resting comfortably in bed in NAD HEENT: normocephalic Neck: supple Neuro: Alert and oriented x4 CV:RRR Resp: Wheezing throughout both lungs but improved since yesterday. Abd: Soft, obese, non distended. No pain to palpation. Positive bowel sounds Extremities: No swelling, erythema, or pain to palpation. Some chronic erythema from likely venous stasis. Objective Data Vit
[2020-05-09 14:47] LABS: Glucose Point of Care 284 (65-105)
[2020-05-09 18:28] LABS: Glucose Point of Care 340 (65-105)
[2020-05-09 20:33] LABS: Glucose Point of Care 210 (65-105)
[2020-05-09] MEDS: INSULIN GLARGINE (*BKC) 100 UNITS/ML 8 UNITS SUB-Q (21:55)
[2020-05-09] MEDS: SENNOSIDES 8.6 MG TABLET PO (21:59)
[2020-05-09 22:48] LABS: Glucose Point of Care 235 (65-105)
[2020-05-10] VITALS (17 sets, daily range): BP systolic 142–155; BP diastolic 55–97; PULSE 60–97; RESP 14–20; TEMP 35.9–36.6; O2SAT 94–100
[2020-05-10] MEDS: ALBUTEROL SULFATE NEB 2.5 MG/0.5 ML INH 5 MG INHALATION ×4 (02:55→19:33)
[2020-05-10] MEDS: IPRATROPIUM BR 0.02% INH SOLN 0.5 MG/2.5 ML VIAL INHALATION ×4 (02:55→19:33)
[2020-05-10 05:27] LABS: Hemoglobin 10.8 g/dL (12.0-15.0); Mean Corpuscular Hemoglobin 25.6 pg (26-34); Mean Corpuscular Volume 85.3 fl (80-100); Mean Platelet Volume 10.8 fl (7.4-10.4); Platelet Count Result 366 k/mm3 (150-375); Red Blood Count 4.22 M/mm3 (4.2-5.4); Red Cell Distribution Width 16.3 % (11.5-14.5); White Blood Count 14.6 K/mm3 (4.5-10.0)
[2020-05-10 05:46] LABS: Blood Urea Nitrogen 29 mg/dL (7-17); Carbon Dioxide 32 mmol/L (22-30); Chloride 93 mmol/L (98-107); Estimated CRCL calculation 77 ml/min; Estimated Glomerular Filt Rate > 60; Glucose 273 mg/dL (65-105); Magnesium 1.9 mg/dL (1.6-2.3); Phosphorus 2.9 mg/dL (2.5-4.5); Sodium 130 mmol/L (137-145)
[2020-05-10 08:00] LABS: Glucose Point of Care 230 (65-105)
[2020-05-10] MEDS: INSULIN ASPART (*BKC) 100 UNITS/ML SUB-Q ×3 (08:02→18:43)
[2020-05-10] MEDS: FLUoxetine HCL 20 MG CAPSULE 40 MG PO (08:08)
[2020-05-10] MEDS: MELOXICAM 7.5 MG TABLET 15 MG PO (08:08)
[2020-05-10] MEDS: PANTOPRAZOLE 40 MG TABLET PO (08:09)
[2020-05-10] MEDS: lisinopriL 20 MG TABLET PO (08:09)
[2020-05-10] MEDS: FUROSEMIDE 20 MG TABLET PO (08:09)
[2020-05-10] MEDS: SPIRONOLACTONE 25 MG TABLET PO (08:09)
[2020-05-10] MEDS: ENOXAPARIN 40 MG/0.4 ML SYRINGE SUB-Q (08:09)
[2020-05-10] MEDS: LOVASTATIN 10 MG TABLET PO (08:09)
[2020-05-10] MEDS: methylPREDNISolone SOD SUCC 40 MG VIAL IV PUSH ×2 (08:10→21:10)
[2020-05-10] MEDS: SILVER SULFADIAZINE 1% CR 50 GM JAR (*BKC) 1 APPLIC TOPICAL ×2 (08:11→18:46)
[2020-05-10] MEDS: NICOTINE (*PBKC) 21 MG PATCH 1 PATCH TRANSDERM (08:11)
[2020-05-10] MEDS: TOLNAFTATE 1% POWDER 45 GM BTL 1 APPLIC TOPICAL ×2 (08:12→21:10)
--- NOTE | 2020-05-10 12:10 | PM.IMPN ---
Progress Note: A&P Assessment and Plan (1) COPD exacerbation: Code(s): J44.1 - Chronic obstructive pulmonary disease with (acute) exacerbation Status: Acute Assessment and Plan: -----patient is feeling relief with the nebulizer and IV steroids but still very wheezy. I am going to continue her IV steroids since her lung exam is not improved today. She has not had follow up with a plant production worker and years and this is her second hospitalization for COPD so I am going to consult pulmonology and get a HRCT scan. No abx indicated at this time but will ask pulmonology their recommendations. I spoke with the patient about the importance of stopping smoking since she is not happy that she is hospitalized again for COPD exacerbation. We also talked about getting a nebulizer from [facility] since her is broken (she will need an order on discharge). Continue breathing treatments (2) Chronic pain of both knees: Code(s): M25.561 - Pain in right knee; M25.562 - Pain in left knee; G89.29 - Other chronic pain Status: Acute Assessment and Plan: -----chronic and ongoing, she does not mention this much today on my exam. She would benefit from weight loss. No notable effusion or erythema to suggest underlying infection or gout. (3) Chronic respiratory failure with hypoxia, on home oxygen therapy: Code(s): J96.11 - Chronic respiratory failure with hypoxia; Z99.81 - Dependence on supplemental oxygen Status: Acute Assessment and Plan: -----continue steroids as stated above. She is at her baseline oxygen. (4) Obstructive sleep apnea: Code(s): G47.33 - Obstructive sleep apnea (adult) (pediatric) Status: Acute Assessment and Plan: -----continue CPAP. (5) Nicotine dependence: Code(s): F17.200 - Nicotine dependence, unspecified, uncomplicated Status: Acute Assessment and Plan: -----we had a long discussion about the importance of not smoking. She is currently utilizing a nicotine patch. (6) Essential hypertension: Code(s): I10 - Essential (primary) hypertension Status: Acute Assessment and Plan: -----last blood pressure 147/64. Continue Lasix, lisinopril, and spironolactone. Watch her potassium. (7) Type 2 diabetes mellitus: Code(s): E11.9 - Type 2 diabetes mellitus without complications Status: Acute Assessment and Plan: -----Last glucose 230. the patient states she is always borderline diabetic and that she follows closely with her primary. She does not want to be on any medication and she has spoke with her primary about this and they are just watching her blood glucose. She understands that steroids can worsen this. She probably does have borderline diabetes that has worsened with the steroids she received in the past few months and her ongoing steroid use now that she is hospitalized. I have increased her sliding scale insulin and added basal insulin 05/09. The patient has been running pretty high which is likely worsened due the steroids. We will see how she does with these changes and may adjust them further tomorrow Subjective Date/time seen: 05/10/20 12:10 Interval history: Pt is a 59 year old female here for COPD exacerbation. Patient was today and states she is doing okay but still feeling wheezy and weak. She states that she still feels congested and wheezy. She is not coughing, having fevers, or chills. She is eating and drinking okay and does feel constipated. She has not had a BM while here and has been taking miralax and senna. She sees Dr. Rowell in [place] but hasn't been to him in years. Exam Narrative: Exam Narrative: General: Obese patient resting comfortably in bed in NAD HEENT: normocephalic Neck: supple Neuro: Alert and oriented x4 CV:RRR Resp: Wheezing throughout both lungs. O2 intact without conversational dyspnea. Abd: Soft, obese, non distended. No
[2020-05-10 14:21] LABS: Glucose Point of Care 242 (65-105)
[2020-05-10 18:46] LABS: Glucose Point of Care 329 (65-105)
[2020-05-10] MEDS: SENNOSIDES 8.6 MG TABLET PO (21:10)
[2020-05-10] MEDS: DOXYCYCLINE HYCLATE 100 MG TABLET PO (21:11)
[2020-05-10] MEDS: INSULIN GLARGINE (*BKC) 100 UNITS/ML 8 UNITS SUB-Q (21:23)
[2020-05-10 23:40] LABS: Glucose Point of Care 330 (65-105)
[2020-05-11] VITALS (14 sets, daily range): BP systolic 138–158; BP diastolic 52–85; PULSE 58–97; RESP 18–24; TEMP 35.8–36.5; O2SAT 94–97
[2020-05-11] MEDS: ALBUTEROL SULFATE NEB 2.5 MG/0.5 ML INH 5 MG INHALATION ×3 (01:14→19:58)
[2020-05-11] MEDS: IPRATROPIUM BR 0.02% INH SOLN 0.5 MG/2.5 ML VIAL INHALATION ×3 (01:14→20:04)
[2020-05-11 06:09] LABS: Hematocrit 37.8 % (37.0-47.0); Hemoglobin 11.3 g/dL (12.0-15.0); Mean Corpuscular HGB Conc 29.9 g/dl (32-36); Mean Corpuscular Hemoglobin 25.7 pg (26-34); Mean Corpuscular Volume 85.9 fl (80-100); Mean Platelet Volume 11.1 fl (7.4-10.4); Platelet Count Result 280 k/mm3 (150-375); Red Cell Distribution Width 16.3 % (11.5-14.5)
[2020-05-11 06:26] LABS: Alanine Aminotransferase 15 U/L (4-35); Albumin Level 3.3 g/dL (3.5-5.1); Alkaline Phosphatase 75 U/L (38-126); Aspartate Amino Transferase 16 U/L (14-36); Bilirubin,Total 0.3 mg/dL (0.2-1.3); Blood Urea Nitrogen 35 mg/dL (7-17); Carbon Dioxide 33 mmol/L (22-30); Chloride 90 mmol/L (98-107); Estimated CRCL calculation 77 ml/min; Estimated Glomerular Filt Rate > 60; Glucose 245 mg/dL (65-105); Potassium 4.9 mmol/L (3.4-5.0); Sodium 128 mmol/L (137-145)
[2020-05-11] MEDS: FLUoxetine HCL 20 MG CAPSULE 40 MG PO (08:04)
[2020-05-11] MEDS: LOVASTATIN 10 MG TABLET PO (08:04)
[2020-05-11] MEDS: methylPREDNISolone SOD SUCC 40 MG VIAL IV PUSH ×2 (08:05→20:54)
[2020-05-11] MEDS: DOXYCYCLINE HYCLATE 100 MG TABLET PO ×2 (08:05→20:53)
[2020-05-11] MEDS: FUROSEMIDE 20 MG TABLET PO (08:05)
[2020-05-11] MEDS: PANTOPRAZOLE 40 MG TABLET PO (08:05)
[2020-05-11] MEDS: lisinopriL 20 MG TABLET PO (08:05)
[2020-05-11] MEDS: MELOXICAM 7.5 MG TABLET 15 MG PO (08:05)
[2020-05-11] MEDS: ENOXAPARIN 40 MG/0.4 ML SYRINGE SUB-Q (08:05)
[2020-05-11] MEDS: SPIRONOLACTONE 25 MG TABLET PO (08:05)
[2020-05-11] MEDS: SILVER SULFADIAZINE 1% CR 50 GM JAR (*BKC) 1 APPLIC TOPICAL ×2 (08:06→18:24)
[2020-05-11] MEDS: NICOTINE (*PBKC) 21 MG PATCH 1 PATCH TRANSDERM (08:06)
[2020-05-11] MEDS: TOLNAFTATE 1% POWDER 45 GM BTL 1 APPLIC TOPICAL ×2 (08:06→20:55)
[2020-05-11] MEDS: INSULIN ASPART (*BKC) 100 UNITS/ML SUB-Q ×3 (09:17→18:22)
[2020-05-11 09:23] LABS: Glucose Point of Care 205 (65-105)
--- NOTE | 2020-05-11 09:35 | PM.IMPN ---
Progress Note: A&P Assessment and Plan (1) COPD exacerbation: Code(s): J44.1 - Chronic obstructive pulmonary disease with (acute) exacerbation Status: Acute Assessment and Plan: Patient feeling improved; overall still with significant wheezing. Pulmonology was consulted since she has not followed up with a industrial tractor driver (Dr Rowell) in years and now with multiple hospitalizations for COPD. She uses nebulizer QID at home and nebulizer broke 1 week ago which she feels precipitated her symptoms. Smoking cessation imperative. Will order to transition to oral prednisone tomorrow AM; added mucinex and PEP therapy; continue bronchodilator therapy with duo nebs Appreciate pulmonology input. (2) Chronic pain of both knees: Code(s): M25.561 - Pain in right knee; M25.562 - Pain in left knee; G89.29 - Other chronic pain Status: Chronic Assessment and Plan: Chronic and ongoing. Has followed with Dr Lewis. She would benefit from weight loss. No notable effusion or erythema to suggest acute pathology. (3) Chronic respiratory failure with hypoxia, on home oxygen therapy: Code(s): J96.11 - Chronic respiratory failure with hypoxia; Z99.81 - Dependence on supplemental oxygen Status: Chronic Assessment and Plan: See above. Tolerating her home requirement of 3L NC. (4) Obstructive sleep apnea: Code(s): G47.33 - Obstructive sleep apnea (adult) (pediatric) Status: Chronic Assessment and Plan: CPAP. (5) Nicotine dependence: Qualifiers: Nicotine product type: cigarettes Substance use status: uncomplicated Qualified Code(s): F17.210 - Nicotine dependence, cigarettes, uncomplicated Code(s): F17.200 - Nicotine dependence, unspecified, uncomplicated Status: Chronic Assessment and Plan: Continue nicotine patch. Smoking cessation strongly advised. (6) Essential hypertension: Code(s): I10 - Essential (primary) hypertension Status: Chronic Assessment and Plan: Elevated/stable. Continue Lasix, lisinopril, and spironolactone. Monitor BP and adjust treatment as needed. (7) Type 2 diabetes mellitus: Qualifiers: Diabetes mellitus lobsterman insulin use: without lobsterman use Diabetes mellitus complication status: without complication Qualified Code(s): E11.9 - Type 2 diabetes mellitus without complications Code(s): E11.9 - Type 2 diabetes mellitus without complications Status: Acute Assessment and Plan: Patient notes she was told she was borderline diabetic years ago but has been diet controlled. She does not want to be on any medication and has spoken with her PCP about monitoring glucoses with diet control. Suspect steriods are contributing to hyperglycemia. Continue Lantus and SSI. Monitor accu-cheks and adjust treatment as needed. Wean steroids. Subjective Date/time seen: 05/11/20 09:00 Interval history: Ms. Gil is a 59yo F admitted for COPD exacerbation and pneumonia. She reports feeling weak today. She thinks her shortness of breath is at her baseline. She tells me she does not walk at home, uses a wheelchair. She denies chest pain. Feels like she has mucus she needs to cough up but cannot cough it out. No BM since Sunday; denies abdominal pain, nausea or vomiting and tolerating oral intake fine. Review of Systems Review of Systems: Narrative: Twelve systems were reviewed with pertinent positives and negatives as per HPI. Exam Narrative: Exam Narrative: General: Obese female resting in bed in no acute distress. HEENT: Normocephalic, EOMI, oral mucosa moist. Cardiovascular: Rate and rhythm are regular. Respiratory: Expiratory wheezing and rhonchi throughout all rand. Respirat
[2020-05-11] MEDS: guaiFENesin 12 HR 600 MG TABCR PO ×2 (10:40→20:53)
[2020-05-11] MEDS: BISACODYL 5 MG TABLET EC PO (10:40)
[2020-05-11] MEDS: polyethylene glycoL 3350 17 GM POWD.PACK PO (10:40)
[2020-05-11 15:10] LABS: Glucose Point of Care 217 (65-105)
[2020-05-11 18:20] LABS: Glucose Point of Care 283 (65-105)
[2020-05-11] MEDS: INSULIN GLARGINE (*BKC) 100 UNITS/ML 8 UNITS SUB-Q (20:54)
[2020-05-11] MEDS: SENNOSIDES 8.6 MG TABLET PO (20:55)
[2020-05-11 21:10] LABS: Glucose Point of Care 320 (65-105)
[2020-05-11] MEDS: INSULIN ASPART (*BKC) 100 UNITS/ML 6 UNITS SUB-Q (21:16)
[2020-05-12] VITALS (14 sets, daily range): BP systolic 134–155; BP diastolic 47–72; PULSE 60–92; RESP 18–22; TEMP 35.7–36.8; O2SAT 90–98
[2020-05-12] MEDS: ALBUTEROL SULFATE NEB 2.5 MG/0.5 ML INH 5 MG INHALATION ×2 (02:03→07:43)
[2020-05-12] MEDS: IPRATROPIUM BR 0.02% INH SOLN 0.5 MG/2.5 ML VIAL INHALATION ×2 (02:03→07:43)
[2020-05-12 05:50] LABS: Basophils Percent Auto 0.2 % (0.2-1.2); Hematocrit 37.7 % (37.0-47.0); Hemoglobin 11.2 g/dL (12.0-15.0); Immature Granulocyte Percent A 1.5 % (0-0.5); Lymphocytes Absolute Auto 0.91 K/mm3 (0.9-3.2); Lymphocytes Percent Auto 6.6 % (18.3-44.2); Mean Corpuscular HGB Conc 29.7 g/dl (32-36); Mean Corpuscular Hemoglobin 24.9 pg (26-34); Mean Platelet Volume 11.3 fl (7.4-10.4); Monocytes Absolute Auto 0.6 K/mm3 (0.1-0.6); Monocytes Percent Auto 4.1 % (2.6-8.5); Neutrophils Absolute Auto 12.1 K/mm3 (1.3-6.7); Neutrophils Percent Auto 87.6 % (45.5-73.1); Platelet Count Result 354 k/mm3 (150-375); Red Blood Count 4.49 M/mm3 (4.2-5.4); Red Cell Distribution Width 16.1 % (11.5-14.5); White Blood Count 13.8 K/mm3 (4.5-10.0)
[2020-05-12 06:05] LABS: Blood Urea Nitrogen 38 mg/dL (7-17); Calcium 8.9 mg/dL (8.4-10.2); Carbon Dioxide 34 mmol/L (22-30); Chloride 88 mmol/L (98-107); Estimated CRCL calculation 77 ml/min; Estimated Glomerular Filt Rate > 60; Glucose 232 mg/dL (65-105); Magnesium 1.7 mg/dL (1.6-2.3); Sodium 129 mmol/L (137-145)
--- NOTE | 2020-05-12 06:23 | PC.NURSE ---
0616: Received call from [facility] stating no beds are available at this time. Patient to be placed on waitlist. [facility] will notify when accommodations are available.
[2020-05-12 09:19] LABS: Glucose Point of Care 178 (65-105)
[2020-05-12] MEDS: ENOXAPARIN 40 MG/0.4 ML SYRINGE SUB-Q (09:28)
[2020-05-12] MEDS: NICOTINE (*PBKC) 21 MG PATCH 1 PATCH TRANSDERM (09:28)
[2020-05-12] MEDS: MELOXICAM 7.5 MG TABLET 15 MG PO (09:29)
[2020-05-12] MEDS: DOXYCYCLINE HYCLATE 100 MG TABLET PO ×2 (09:29→21:48)
[2020-05-12] MEDS: SPIRONOLACTONE 25 MG TABLET PO (09:29)
[2020-05-12] MEDS: lisinopriL 20 MG TABLET PO (09:29)
[2020-05-12] MEDS: LOVASTATIN 10 MG TABLET PO (09:29)
[2020-05-12] MEDS: predniSONE 20 MG TABLET 40 MG PO (09:29)
[2020-05-12] MEDS: polyethylene glycoL 3350 17 GM POWD.PACK PO (09:30)
[2020-05-12] MEDS: guaiFENesin 12 HR 600 MG TABCR PO ×2 (09:30→21:48)
[2020-05-12] MEDS: FUROSEMIDE 20 MG TABLET PO (09:30)
[2020-05-12] MEDS: PANTOPRAZOLE 40 MG TABLET PO (09:30)
[2020-05-12] MEDS: FLUoxetine HCL 20 MG CAPSULE 40 MG PO (09:30)
[2020-05-12] MEDS: SILVER SULFADIAZINE 1% CR 50 GM JAR (*BKC) 1 APPLIC TOPICAL ×2 (09:30→18:22)
[2020-05-12] MEDS: TOLNAFTATE 1% POWDER 45 GM BTL 1 APPLIC TOPICAL ×2 (09:31→21:48)
--- NOTE | 2020-05-12 09:48 | PM.IMPN ---
Progress Note: A&P Assessment and Plan (1) COPD exacerbation: Code(s): J44.1 - Chronic obstructive pulmonary disease with (acute) exacerbation Status: Acute Assessment and Plan: Patient feeling improved; overall still with significant wheezing, patient tells me she thinks her SOB is at her baseline. Pulmonology was consulted since she has not followed up with a manager sap (Dr Rowell) in years and now with multiple hospitalizations for COPD. She uses nebulizer QID at home and nebulizer broke 1 week ago which she feels precipitated her symptoms. She is unsure if she can afford the $35 to purchase a new nebulizer as instructed. Smoking cessation imperative. Transitioned to oral prednisone; added mucinex and PEP therapy; continue bronchodilator therapy and supplemental O2. Appreciate pulmonology input. (2) Pneumonia: Qualifiers: Laterality: bilateral Lung location: unspecified part of lung Pneumonia type: due to unspecified organism Qualified Code(s): J18.9 - Pneumonia, unspecified organism Code(s): J18.9 - Pneumonia, unspecified organism Status: Acute Assessment and Plan: CT chest shows LASHAE patchy groundglass opacities. Small LASHAE pleural effusions possibly loculated on left. Appreciate Dr Okeefe input. COVID testing ordered, although being afebrile with leukocytosis seems less likely. Continue doxycycline and rocephin (day 3) and respiratory regimen outlined above. Will switch nebulizers to MDI and hold off on CPAP at night while COVID testing is pending. (3) Chronic pain of both knees: Code(s): M25.561 - Pain in right knee; M25.562 - Pain in left knee; G89.29 - Other chronic pain Status: Chronic Assessment and Plan: Chronic and ongoing. Has followed with Dr Lewis. She would benefit from weight loss. No notable effusion or erythema to suggest acute pathology. (4) Chronic respiratory failure with hypoxia, on home oxygen therapy: Code(s): J96.11 - Chronic respiratory failure with hypoxia; Z99.81 - Dependence on supplemental oxygen Status: Chronic Assessment and Plan: See above. Tolerating her home requirement of 3L NC. (5) Obstructive sleep apnea: Code(s): G47.33 - Obstructive sleep apnea (adult) (pediatric) Status: Chronic Assessment and Plan: Hold off on CPAP while COVID results pending. (6) Nicotine dependence: Qualifiers: Nicotine product type: cigarettes Substance use status: uncomplicated Qualified Code(s): F17.210 - Nicotine dependence, cigarettes, uncomplicated Code(s): F17.200 - Nicotine dependence, unspecified, uncomplicated Status: Chronic Assessment and Plan: Continue nicotine patch. Smoking cessation strongly advised. (7) Essential hypertension: Code(s): I10 - Essential (primary) hypertension Status: Chronic Assessment and Plan: Elevated/stable. Continue Lasix, lisinopril, and spironolactone. Monitor BP and adjust treatment as needed. (8) Type 2 diabetes mellitus: Qualifiers: Diabetes mellitus complication status: without complication Diabetes mellitus long wall mining machine helper insulin use: without long wall mining machine helper use Qualified Code(s): E11.9 - Type 2 diabetes mellitus without complications Code(s): E11.9 - Type 2 diabetes mellitus without complications Status: Acute Assessment and Plan: Patient notes she was told she was borderline diabetic years ago but has been diet controlled. She does not want to be on any medication and has spoken with her PCP about monitoring glucoses with diet control. Suspect steriods are contributing to hyperglycemia. Continue Lantus and SSI. Monitor accu-cheks and adjust treatment as needed. Wean steroids.
--- NOTE | 2020-05-12 11:32 | PM.CNPUL ---
History of Present Illness History of Present Illness Consult date: 05/12/20 Chief complaint: COPD Exacerbation, Hypoxemia Narrative: please see job # [id number] A/P acute and chronic respiratory failure due to COPD exacerbation, pneumonia, poor medical regimen and smoking COPD with exacerbation pneumonia with suspected left loculated pleural effusion MELBA; has PAP therapy at home, no information on compliance; she is using this 2-3 hours at a time, poor quality sleep tobacco use; > 50 pack year history morbid obesity multiple medical conditions; DM, DJD, HTN, non-ambulatory Agree with screening for COVID, Rx for pneumonia, COPD with bronchodilators, ABG; old records from [facility]; she may benefit from a NPPV. Tobacco cessation is imperative. Repeat chest CT in several weeks to see if the effusion is improving. It is too small to tap now. [facility] Past Medical History Medical History (Updated 05/12/20 @ 11:32 by Libra Pereira PA-C) Bilateral cataracts Maturing. Cellulitis and abscess of buttock (~07/2019) Chronic anemia Chronic pain of both knees Followed by Dr. Lewis. Imaging has showed advanced degenerative disease of both knees with flexion contracture and varus deformity. As she is a non ambulator, she is not a candidate for surgery. She last received injections at the beginning of March 2020. Chronic respiratory failure with hypoxia, on home oxygen therapy Depression with anxiety Essential hypertension Gastroesophageal reflux disease Hyperlipidemia Joint pain Left shoulder strain Morbid obesity with BMI of 50.0-59.9, adult Nicotine dependence Obstructive sleep apnea With intermittent CPAP use. Osteoarthritis of both knees Type 2 diabetes mellitus Hemoglobin A1c was 8% in July 2019. Surgical History Surgical History History of ectopic Family History Family History Father Suicide Mother , At age 60 Cerebral aneurysm Cerebrovascular accident Coronary artery disease Sibling Hypertension Sister Social History Social History (Updated 05/07/20 @ 22:32 by Moon Madden PA-C) Social History: Primary care physician: Dr. Reuben Mcclain. Surrogate decision maker: Carmelo Navarro, samantha. Code status: Full code. Smoking packs per day: 1.5 Smoking cigarettes per day: 30.0 Years smoked: 50 Smoking pack-years: 75.00 Smoking status: Current every day smoker Tobacco type: cigarettes Additional smoking assessment comments: She began smoking at the age of 9. Alcohol intake: never Substance use: current Substance use type: marijuana Last use: Daily marijuana use. Additional living arrangements comments: She reports that she lives alone. She recently kicked her daughter out of the house. She is essentially wheelchair dependent and transfers to a bedside commode. Additional occupation/education comments: Disabled. Gender identity (if verbalized by the patient): Female Spiritual care concerns: No Meds Home Medications and Allergies Home Medications Medication Instructions Recorded Confirmed Type budesonide-formoterol HFA 160 1 puff INHALATION Q12H PRN 11/07/19 05/07/20 History mcg-4.5 mcg/actuation aerosol inhaler fluoxetine 20 mg capsule 40 mg PO DAILY cap 11/07/19 05/07/20 History lisinopril 20 mg tablet 20 mg PO DAILY 11/07/19 05/07/20 History spironolactone 25 mg tablet 25 mg PO DAILY 11/07/19 05/07/20 History albuterol sulfate 90 mcg/actuation 1 puff INHALATION Q4H PRN #8.5 gm 01/05/20 05/07/20 Rx aerosol inhaler silver sulfadiazine 1 % topical 1 applic TOPICAL BID #20 gm 01/15/20 05/07/20 Rx cream meloxicam 15 mg tablet 15 mg PO DAILY #90 tablet 02/24/20 05/07/20 Rx lovastatin 10 mg tablet 10 mg PO DAILY #30 tablet 03/23/20 05/07/20 Rx omeprazole 40 mg capsule,delayed 40 mg PO DAILY #30 cap
[2020-05-12] MEDS: ALBUTEROL SULFATE (*SP) AEROSOL 1 PUFF 2 PUFF INHALATION ×2 (12:01→21:45)
[2020-05-12 12:10] LABS: Glucose Point of Care 196 (65-105)
--- NOTE | 2020-05-12 12:46 | PC.NURSE ---
patient transferred to room 328.
[2020-05-12 18:56] LABS: Glucose Point of Care 278 (65-105)
[2020-05-12] MEDS: SENNOSIDES 8.6 MG TABLET PO (21:48)
[2020-05-12] MEDS: INSULIN GLARGINE (*BKC) 100 UNITS/ML 8 UNITS SUB-Q (21:49)
[2020-05-12 22:08] LABS: SARS-CoV-2 RNA PCR Negative
[2020-05-12 22:39] LABS: Glucose Point of Care 263 (65-105)
[2020-05-13] VITALS (12 sets, daily range): BP systolic 117–155; BP diastolic 44–89; PULSE 67–96; RESP 18–22; TEMP 36.4–37.2; O2SAT 93–100
--- NOTE | 2020-05-13 06:19 | CONS_ITS ---
DATE OF CONSULTATION: 05/12/2020 REASON FOR THE CONSULT: Pati León consulted me to see this patient for chronic obstructive pulmonary disease exacerbation, chronic and acute respiratory failure. HISTORY: This patient is a 59-year-old female with chronic debilitation. She has had COPD for many years, has been on oxygen for at least 5-6 years, BiPAP for sleep apnea and she has been on ambulatory for the last 8 months due to severe extensive degenerative joint disease with pain in both knees. She is not a candidate for any surgical therapy, as she is nonambulatory. She is a cigarette smoker and was smoking 3/4 pack per day at the time of this admission on May 07. She started smoking at age 9. Normally smokes a pack and a half per day. She was recently admitted on March 28 with similar complaints, knee pain and shortness of breath. She was treated with injections in her knees, was discharged home. She was receiving in the home nursing care, physical therapy and just completed occupational therapy. She does continue to smoke 3/4 pack per day and has her baseline chronic cough with yellowish green sputum, shortness of breath and wheezing. All symptoms are unchanged. She has a number of people in and out of her home including friends, a niece, caregivers. She does not leave the home. However, she does have exposures to others. She does not have any known COVID exposure. She is denying fever, chills, but she did have a slight sore throat at the start of her last admission. She has not had any travel. She denies leg swelling, sudden shortness of breath, hemoptysis or pleuritic chest discomfort. I was asked to see her for worsening chest CT. She had a chest CT on May 10 with patchy bilateral ground-glass opacifications mainly in the upper lobes, consistent with pneumonia, small pleural effusions, possibly loculated in the left base and cardiomegaly. Her white blood cell count this admission was 11.8 and peak on May 09 at 17.5, also increased bands. She has persistent hyponatremia, this has been a problem on other admissions. She has poorly controlled glucose running in the high 280 to 320 range. ALLERGIES: AMPICILLIN, AZITHROMYCIN, CODEINE, ATORVASTATIN, TRAMADOL, ERYTHROMYCIN WITH SULFISOXAZOLE. HOME MEDICATIONS: 1. Saline nasal spray. 2. Sulfadiazine 1% topically. 3. Nystatin powder b.i.d. 4. Lisinopril 20 mg a day. 5. DuoNeb q.i.d. p.r.n., shortness of breath. However, her nebulizer broke within the last week. 6. Lasix 20 mg a day. 7. Symbicort 160/4.5, 1 puff q.12 hours p.r.n., this is normally a 2 puff b.i.d. drug not p.r.n. 8. Albuterol rescue inhaler. 9. Fluoxetine 20 mg a day. 10. Spironolactone 25 mg a day. 11. Lovastatin 10 mg a day. 12. Omeprazole 40 mg delayed release daily. 13. Nitroglycerin 0.4 mg sublingual p.r.n. 14. Meloxicam 15 mg daily. PAST MEDICAL HISTORY: Morbid obesity, has lost 100 pounds over the last few years at her max was 387 pounds. Cellulitis and abscess of the buttocks, July 2019, chronic anemia, severe degenerative joint disease both knees with flexion contracture and varus deformity. Nonambulatory. Chronic respiratory failure with hypoxia, on home therapy for at least 5 to 6 years, depression and anxiety, hypertension, gastroesophageal reflux disease, hyperlipidemia, nicotine dependence, obstructive sleep apnea with intermittent CPAP use, type 2 diabetes mellitus. Hemoglobin A1c. PAST SURGICAL HISTORY: Ectopic . SOCIAL HISTORY: She has a son named, Carmelo, who is her decision maker. She currently smokes 3/4 pack per day. She started at age 9, mainly 1-1/2 pack per day, so has smoked for over 50 years at least a pack per day. 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 She says t
[2020-05-13 06:47] LABS: Basophils Percent Auto 0.1 % (0.2-1.2); Eosinophils Absolute Auto 0.1 K/mm3 (0-0.3); Eosinophils Percent Auto 0.5 % (0-4.4); Hematocrit 38.1 % (37.0-47.0); Hemoglobin 11.6 g/dL (12.0-15.0); Immature Granulocyte Absolute 0.26 K/mm3 (0.00-0.031); Immature Granulocyte Percent A 1.5 % (0-0.5); Lymphocytes Absolute Auto 2.57 K/mm3 (0.9-3.2); Lymphocytes Percent Auto 14.6 % (18.3-44.2); Mean Corpuscular HGB Conc 30.4 g/dl (32-36); Mean Corpuscular Hemoglobin 25.2 pg (26-34); Mean Corpuscular Volume 82.8 fl (80-100); Mean Platelet Volume 10.9 fl (7.4-10.4); Monocytes Absolute Auto 1.4 K/mm3 (0.1-0.6); Neutrophils Absolute Auto 13.2 K/mm3 (1.3-6.7); Neutrophils Percent Auto 75.3 % (45.5-73.1); Platelet Count Result 362 k/mm3 (150-375); Red Cell Distribution Width 16.2 % (11.5-14.5); White Blood Count 17.6 K/mm3 (4.5-10.0)
[2020-05-13 07:02] LABS: Blood Urea Nitrogen 41 mg/dL (7-17); Calcium 8.5 mg/dL (8.4-10.2); Carbon Dioxide 36 mmol/L (22-30); Chloride 89 mmol/L (98-107); Estimated CRCL calculation 70 ml/min; Estimated Glomerular Filt Rate 57; Glucose 121 mg/dL (65-105); Magnesium 1.8 mg/dL (1.6-2.3); Potassium 4.9 mmol/L (3.4-5.0); Sodium 131 mmol/L (137-145)
[2020-05-13] MEDS: polyethylene glycoL 3350 17 GM POWD.PACK PO (08:17)
[2020-05-13] MEDS: predniSONE 20 MG TABLET 40 MG PO (08:18)
[2020-05-13] MEDS: DOXYCYCLINE HYCLATE 100 MG TABLET PO ×2 (08:19→20:37)
[2020-05-13] MEDS: FUROSEMIDE 20 MG TABLET PO (08:19)
[2020-05-13] MEDS: MELOXICAM 7.5 MG TABLET 15 MG PO (08:19)
[2020-05-13] MEDS: LOVASTATIN 10 MG TABLET PO (08:19)
[2020-05-13] MEDS: SPIRONOLACTONE 25 MG TABLET PO (08:19)
[2020-05-13] MEDS: guaiFENesin 12 HR 600 MG TABCR PO ×2 (08:19→20:37)
[2020-05-13] MEDS: NICOTINE (*PBKC) 21 MG PATCH 1 PATCH TRANSDERM (08:20)
[2020-05-13] MEDS: FLUoxetine HCL 20 MG CAPSULE 40 MG PO (08:20)
[2020-05-13] MEDS: PANTOPRAZOLE 40 MG TABLET PO (08:20)
[2020-05-13] MEDS: ENOXAPARIN 40 MG/0.4 ML SYRINGE SUB-Q (08:20)
[2020-05-13] MEDS: lisinopriL 20 MG TABLET PO (08:20)
[2020-05-13] MEDS: ALBUTEROL SULFATE (*SP) AEROSOL 1 PUFF 2 PUFF INHALATION (08:31)
[2020-05-13] MEDS: TOLNAFTATE 1% POWDER 45 GM BTL 1 APPLIC TOPICAL ×2 (08:32→20:43)
[2020-05-13] MEDS: SILVER SULFADIAZINE 1% CR 50 GM JAR (*BKC) 1 APPLIC TOPICAL ×2 (08:32→17:38)
[2020-05-13 08:51] LABS: Glucose Point of Care 115 (65-105)
--- NOTE | 2020-05-13 10:55 | PM.IMPN ---
Progress Note: A&P Assessment and Plan (1) COPD exacerbation: Code(s): J44.1 - Chronic obstructive pulmonary disease with (acute) exacerbation Status: Acute Assessment and Plan: Patient feeling improved; overall still with wheezing, patient tells me she thinks her SOB is at her baseline. Pulmonology was consulted since she has not followed up with a enterprise software developer (Dr Rowell) in years and now with multiple hospitalizations for COPD. She uses nebulizer QID at home and nebulizer broke 1 week ago which she feels precipitated her symptoms. She is unsure if she can afford the $35 to purchase a new nebulizer as instructed. Will discuss with care coordination to determine if any assistance may be made available. Smoking cessation imperative Transitioned to oral prednisone; continue mucinex and PEP therapy; continue bronchodilator therapy and supplemental O2. She did have an increase in leukocytosis related to induction of prednisone treatment. Appreciate pulmonology input. (2) Pneumonia: Qualifiers: Laterality: bilateral Lung location: unspecified part of lung Pneumonia type: due to unspecified organism Qualified Code(s): J18.9 - Pneumonia, unspecified organism Code(s): J18.9 - Pneumonia, unspecified organism Status: Acute Assessment and Plan: CT chest shows LASHAE patchy groundglass opacities. Small LASHAE pleural effusions possibly loculated on left. Dr. Okeefe recommends repeat chest CT in several weeks to see if effusion is improving. She tested negative for COVID-19. Continue doxycycline and rocephin (day 4) and respiratory regimen outlined above. Given negative COVID test, may resume nebulizer therapy and CPAP. (3) Chronic pain of both knees: Code(s): M25.561 - Pain in right knee; M25.562 - Pain in left knee; G89.29 - Other chronic pain Status: Chronic Assessment and Plan: Chronic and ongoing. Has followed with Dr Lewis. She would benefit from weight loss. No notable effusion or erythema to suggest acute pathology. (4) Chronic respiratory failure with hypoxia, on home oxygen therapy: Code(s): J96.11 - Chronic respiratory failure with hypoxia; Z99.81 - Dependence on supplemental oxygen Status: Chronic Assessment and Plan: See above. Tolerating her home requirement of 3L NC. Appreciate pulmonology recommendations (5) Obstructive sleep apnea: Code(s): G47.33 - Obstructive sleep apnea (adult) (pediatric) Status: Chronic Assessment and Plan: Resume CPAP given negative COVID results. (6) Nicotine dependence: Qualifiers: Nicotine product type: cigarettes Substance use status: uncomplicated Qualified Code(s): F17.210 - Nicotine dependence, cigarettes, uncomplicated Code(s): F17.200 - Nicotine dependence, unspecified, uncomplicated Status: Chronic Assessment and Plan: Continue nicotine patch. Smoking cessation strongly advised. (7) Essential hypertension: Code(s): I10 - Essential (primary) hypertension Status: Chronic Assessment and Plan: Elevated/stable with improvement today. Continue Lasix, lisinopril, and spironolactone. Monitor BP and adjust treatment as needed. (8) Type 2 diabetes mellitus: Qualifiers: Diabetes mellitus complication status: without complication Diabetes mellitus terminal operations manager insulin use: without terminal operations manager use Qualified Code(s): E11.9 - Type 2 diabetes mellitus without complications Code(s): E11.9 - Type 2 diabetes mellitus without complications Status: Acute Assessment and Plan: Patient notes she was told she was borderline diabetic years ago but has been diet controlled. She does not want to be on any medication
--- NOTE | 2020-05-13 11:42 | PCOTNOTE ---
Pt declined OT this am stating, I'm just not with it. I just woke up. I didn't sleep well last night. I'm not ready for it yet.
[2020-05-13 12:30] LABS: Glucose Point of Care 169 (65-105)
[2020-05-13] MEDS: ALBUTEROL SULFATE NEB 2.5 MG/0.5 ML INH INHALATION ×2 (14:52→20:54)
[2020-05-13] MEDS: INSULIN ASPART (*BKC) 100 UNITS/ML SUB-Q (17:35)
[2020-05-13 17:45] LABS: Glucose Point of Care 256 (65-105)
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
[2020-05-13] MEDS: INSULIN GLARGINE (*BKC) 100 UNITS/ML 8 UNITS SUB-Q (20:37)
[2020-05-13] MEDS: SENNOSIDES 8.6 MG TABLET PO (20:37)
[2020-05-13 20:41] LABS: Glucose Point of Care 245 (65-105)
[2020-05-14] VITALS (7 sets, daily range): BP systolic 149–155; BP diastolic 52–69; PULSE 60–75; RESP 18–20; TEMP 36.1–36.3; O2SAT 94–99
[2020-05-14 06:41] LABS: Hematocrit 41.9 % (37.0-47.0); Hemoglobin 12.3 g/dL (12.0-15.0); Mean Corpuscular HGB Conc 29.4 g/dl (32-36); Mean Corpuscular Volume 85.2 fl (80-100); Mean Platelet Volume 11.9 fl (7.4-10.4); Platelet Count Result 315 k/mm3 (150-375); Red Blood Count 4.92 M/mm3 (4.2-5.4); Red Cell Distribution Width 16.9 % (11.5-14.5); White Blood Count 19.7 K/mm3 (4.5-10.0)
--- NOTE | 2020-05-14 07:24 | PCRCNOTE ---
Window of time for administration has passed. See next scheduled administration.
[2020-05-14 07:56] LABS: Blood Urea Nitrogen 47 mg/dL (7-17); Calcium 8.5 mg/dL (8.4-10.2); Carbon Dioxide 35 mmol/L (22-30); Chloride 91 mmol/L (98-107); Estimated CRCL calculation 77 ml/min; Estimated Glomerular Filt Rate > 60; Glucose 103 mg/dL (65-105); Potassium 4.5 mmol/L (3.4-5.0); Sodium 133 mmol/L (137-145)
[2020-05-14 07:56] LABS: Glucose Point of Care 98 (65-105)
[2020-05-14] MEDS: ALBUTEROL SULFATE NEB 2.5 MG/0.5 ML INH INHALATION ×2 (09:24→14:02)
[2020-05-14] MEDS: polyethylene glycoL 3350 17 GM POWD.PACK PO (09:30)
[2020-05-14] MEDS: LOVASTATIN 10 MG TABLET PO (09:30)
[2020-05-14] MEDS: ENOXAPARIN 40 MG/0.4 ML SYRINGE SUB-Q (09:30)
[2020-05-14] MEDS: guaiFENesin 12 HR 600 MG TABCR PO (09:30)
[2020-05-14] MEDS: FUROSEMIDE 20 MG TABLET PO (09:31)
[2020-05-14] MEDS: SPIRONOLACTONE 25 MG TABLET PO (09:31)
[2020-05-14] MEDS: predniSONE 20 MG TABLET 40 MG PO (09:31)
[2020-05-14] MEDS: PANTOPRAZOLE 40 MG TABLET PO (09:31)
[2020-05-14] MEDS: lisinopriL 20 MG TABLET PO (09:31)
[2020-05-14] MEDS: DOXYCYCLINE HYCLATE 100 MG TABLET PO (09:31)
[2020-05-14] MEDS: MELOXICAM 7.5 MG TABLET 15 MG PO (09:31)
[2020-05-14] MEDS: NICOTINE (*PBKC) 21 MG PATCH 1 PATCH TRANSDERM (09:31)
[2020-05-14] MEDS: FLUoxetine HCL 20 MG CAPSULE 40 MG PO (09:31)
[2020-05-14] MEDS: SILVER SULFADIAZINE 1% CR 50 GM JAR (*BKC) 1 APPLIC TOPICAL (09:32)
[2020-05-14] MEDS: TOLNAFTATE 1% POWDER 45 GM BTL 1 APPLIC TOPICAL (09:34)
[2020-05-14 12:34] LABS: Glucose Point of Care 145 (65-105)
--- NOTE | 2020-05-14 14:29 | PM.DS ---
DS: Admitting Diagnosis Admitting Diagnosis Admitting Diagnosis: Chronic obstructive pulmonary disease with (acute) exacerbation DS: Discharge Diagnosis Discharge Diagnosis (1) COPD exacerbation: Code(s): J44.1 - Chronic obstructive pulmonary disease with (acute) exacerbation Status: Acute Assessment and Plan: Patient feeling improved; overall still with wheezing, patient tells me she thinks her SOB is at her baseline. Pulmonology was consulted since she has not followed up with a dairy feed worker (Dr Rowell) in years and now with multiple hospitalizations for COPD. She uses nebulizer QID at home and nebulizer broke 1 week ago which she feels precipitated her symptoms. Insurance won't cover a new one and she can't afford to buy one until the of the month. Our respiratory department has given her one for discharge. Smoking cessation imperative Transitioned to oral prednisone; continue mucinex and PEP therapy; continue bronchodilator therapy and supplemental O2. She did have an increase in leukocytosis felt to be related to induction of prednisone treatment. (2) Pneumonia: Qualifiers: Pneumonia type: due to unspecified organism Laterality: bilateral Lung location: unspecified part of lung Qualified Code(s): J18.9 - Pneumonia, unspecified organism Code(s): J18.9 - Pneumonia, unspecified organism Status: Acute Assessment and Plan: CT chest shows LASHAE patchy groundglass opacities. Small LASHAE pleural effusions possibly loculated on left. Dr. Okeefe recommends repeat chest CT in several weeks to see if effusion is improving. She tested negative for COVID-19. Treated with azithromycin and rocephin. (3) Chronic pain of both knees: Code(s): M25.561 - Pain in right knee; M25.562 - Pain in left knee; G89.29 - Other chronic pain Status: Chronic Assessment and Plan: Chronic and ongoing. Has followed with Dr Lewis. She would benefit from weight loss. No notable effusion or erythema to suggest acute pathology. (4) Chronic respiratory failure with hypoxia, on home oxygen therapy: Code(s): J96.11 - Chronic respiratory failure with hypoxia; Z99.81 - Dependence on supplemental oxygen Status: Chronic Assessment and Plan: See above. Tolerating her home requirement of 3L NC. (5) Obstructive sleep apnea: Code(s): G47.33 - Obstructive sleep apnea (adult) (pediatric) Status: Chronic Assessment and Plan: CPAP (6) Nicotine dependence: Qualifiers: Nicotine product type: cigarettes Substance use status: uncomplicated Qualified Code(s): F17.210 - Nicotine dependence, cigarettes, uncomplicated Code(s): F17.200 - Nicotine dependence, unspecified, uncomplicated Status: Chronic Assessment and Plan: Continue nicotine patch. Smoking cessation strongly advised. (7) Essential hypertension: Code(s): I10 - Essential (primary) hypertension Status: Chronic Assessment and Plan: Continue Lasix, lisinopril, and spironolactone. (8) Type 2 diabetes mellitus: Qualifiers: Diabetes mellitus terminal operator insulin use: without fci use Diabetes mellitus complication status: without complication Qualified Code(s): E11.9 - Type 2 diabetes mellitus without complications Code(s): E11.9 - Type 2 diabetes mellitus without complications Status: Acute Assessment and Plan: Patient notes she was told she was borderline diabetic years ago but has been diet controlled. She does not want to be on any medication and has spoken with her PCP about monitoring glucoses with diet control. Suspect steriods are contributing to hyperglycemia. Follow up with PCP (9)
== END 2020-05-14 17:35 | disposition home health service (06) | DRG 140 ==
LOC: ANHED 16:24 → ANH2MED 17:25 → ANH3MEDSUR 05-13 10:29 → ANH2MED 05-17 17:26 → ANH3MEDSUR 05-17 17:26
PROVIDERS: Emergency Medicine Emergency Medical Services; Physician Assistant; Admitting Provider Internal Medicine; Emergency Provider Emergency Medicine; PCP Family Medicine; Visit Provider Physician Assistant
DX: J44.0 Chronic obstructive pulmonary disease with (acute) lower respiratory infection (principal); J44.1 Chronic obstructive pulmonary disease with (acute) exacerbation; J96.21 Acute and chronic respiratory failure with hypoxia; J18.9 Pneumonia, unspecified organism; Z99.81 Dependence on supplemental oxygen; F17.210 Nicotine dependence, cigarettes, uncomplicated; G47.33 Obstructive sleep apnea (adult) (pediatric); E66.01 Morbid (severe) obesity due to excess calories; Z68.43 Body mass index [BMI] 50.0-59.9, adult; I10 Essential (primary) hypertension; E11.9 Type 2 diabetes mellitus without complications; M25.561 Pain in right knee; M25.562 Pain in left knee; G89.29 Other chronic pain; Z20.828 Contact with and (suspected) exposure to other viral communicable diseases; E87.1 Hypo-osmolality and hyponatremia
CPT/HCPCS: 36415; 71046; 71250; 80048; 80076; 83036; 83735; 84100; 85025; 85027; 87635; 93005; 94640; 96361; 96365; 96372; 96374; 96375; 96376; 97110; 97161; 97165; 99285; A9270; C8929; C9803; G0378; G0379; J0131; J0696; J1650; J1815; J1885; J2920; J2930; J7030; J7512; Q9957; U0003

== ENCOUNTER 2020-06-19 13:02 | Emergency (ER) | payer OTHER, SELFPAY ==
[2020-06-19 13:04] VITALS: BP 94/37; PULSE 77; RESP 18; TEMP 36.1; O2SAT 100
--- NOTE | 2020-06-19 13:28 | ED.GENADULT ---
HPI - General Adult General Chief complaint: Extremity Injury, Upper Stated complaint: numb/swelling right hand x3 months Time Seen by Provider: 06/19/20 13:19 History of Present Illness HPI narrative: She reports pain all over her body for a long time. Right now it is worst in the arm and had. Associated with paresthesias. She says that it moves all around. She has tried NSAIDs without resolution. She also had some left over norco, but she ran out. She was recently hospitalized here and at discharged she had an appointment scheduled with her PCP. She did not go to this appointment. Attempted to contact his office to plan for discharge. No call service. Related Data Home Medications Medication Instructions Recorded Confirmed budesonide-formoterol HFA 160 1 puff INHALATION Q12H PRN 11/07/19 05/07/20 mcg-4.5 mcg/actuation aerosol inhaler spironolactone 25 mg tablet 25 mg PO DAILY 11/07/19 05/07/20 nystatin 1 applic TOPICAL BID 03/28/20 05/07/20 sodium chloride [Nasal Scarbro 2 spray NASAL Q4H PRN 03/28/20 05/07/20 (sodium chloride)] nitroglycerin 0.4 mg SUBLINGUAL Q5M PRN 05/07/20 05/07/20 Allergies Allergy/AdvReac Type Severity Reaction Status Date / Time ampicillin AdvReac Intermediate Nausea Verified 06/19/20 13:08 azithromycin AdvReac Intermediate Vomiting Verified 06/19/20 13:08 codeine AdvReac Intermediate Vomiting Verified 06/19/20 13:08 atorvastatin AdvReac Mild Muscle Pain Verified 06/19/20 13:08 tramadol AdvReac vommiting Verified 06/19/20 13:08 Erythromycin/Sulfisoxazole Allergy Intermediate Unknown Uncoded 06/19/20 13:08 Review of Systems Review of Systems: All systems reviewed & are unremarkable except as noted in HPI and below Constitutional: Constitutional: Denies fever(s) Cardiovascular: Cardiovascular: Denies chest pain Respiratory: Respiratory: Reports dyspnea (chronic) Gastrointestinal: Gastrointestinal: Denies abdominal pain and Denies nausea PMFSH Past Medical History Medical History Bilateral cataracts Maturing. Cellulitis and abscess of buttock (~07/2019) Chronic anemia Chronic pain of both knees Followed by Dr. Lewis. Imaging has showed advanced degenerative disease of both knees with flexion contracture and varus deformity. As she is a non ambulator, she is not a candidate for surgery. She last received injections at the beginning of March 2020. Chronic respiratory failure with hypoxia, on home oxygen therapy Depression with anxiety Essential hypertension Gastroesophageal reflux disease Hyperlipidemia Joint pain Left shoulder strain Morbid obesity with BMI of 50.0-59.9, adult Nicotine dependence Obstructive sleep apnea With intermittent CPAP use. Osteoarthritis of both knees Type 2 diabetes mellitus Hemoglobin A1c was 8% in July 2019. Surgical History Surgical History History of ectopic Family History Family History Father Suicide Mother , At age 60 Cerebral aneurysm Cerebrovascular accident Coronary artery disease Sibling Hypertension Sister Social History Social History Social History: Primary care physician: Dr. Reuben Mcclain. Surrogate decision maker: Carmelo Navarro, son. Code status: Full code. Smoking packs per day: 1.5 Smoking cigarettes per day: 30.0 Years smoked: 50 Smoking pack-years: 75.00 Smoking status: Current every day smoker Tobacco type: cigarettes Additional smoking assessment comments: She began smoking at the age of 9. Alcohol intake: never Substance use: current Substance use type: marijuana Last use: Daily marijuana use. Additional living arrangements comments: She reports that she lives alone. She recently kicked her daughter out of the house. Amarilis
== END 2020-06-19 14:57 | disposition home or self-care (01) ==
PROVIDERS: Emergency Provider Emergency Medicine; PCP Family Medicine
DX: G89.29 Other chronic pain (principal); J96.11 Chronic respiratory failure with hypoxia; Z99.81 Dependence on supplemental oxygen; E78.5 Hyperlipidemia, unspecified; I10 Essential (primary) hypertension; E66.9 Obesity, unspecified; Z68.43 Body mass index [BMI] 50.0-59.9, adult; G47.33 Obstructive sleep apnea (adult) (pediatric); E11.9 Type 2 diabetes mellitus without complications; F17.210 Nicotine dependence, cigarettes, uncomplicated; Z99.3 Dependence on wheelchair; M17.0 Bilateral primary osteoarthritis of knee
CPT/HCPCS: 99281

== ENCOUNTER 2020-07-29 12:18 | Outpatient (RCR) | payer OTHER, SELFPAY ==
--- NOTE | 2020-07-21 12:55 | PCWOUND ---
Wocn NOte Patient cancelled appointment due to ride issues. rescheduled for next week
[2020-07-29 12:30] VITALS: BMI 51.7
== END 2020-10-06 13:26 | disposition home or self-care (01) ==
LOC: ANHWOC 12:18
PROVIDERS: PCP Family Medicine; Visit Provider Family Medicine
DX: L02.31 Cutaneous abscess of buttock (principal); L03.317 Cellulitis of buttock
CPT/HCPCS: 99213; G0463

== ENCOUNTER 2020-11-29 12:46 | Outpatient (CLI) | payer OTHER, SELFPAY ==
[2020-11-29 13:28] LABS: CRP 10.3 mg/dL (0.0-0.9); Uric Acid 7.3 mg/dL (2.6-6.0)
[2020-11-29 13:48] LABS: RFT Charge Test YES; Rheumatoid Factor Screen Positive (Negative); Rheumatoid Factor Titer 1:4/40 (Negative)
[2020-11-29 14:06] LABS: Erythrocyte Sedimentation Rate 54 mm/hr (0-20)
[2020-12-02 14:20] LABS: HLA B27 Negative (Negative)
[2020-12-02 22:10] LABS: SS-A <1.0; SS-B <1.0
[2020-12-03 10:02] LABS: Anti Cyclic Citrullinated Pept 169 Units (<20)
== END 2020-11-29 12:47 | disposition home or self-care (01) ==
PROVIDERS: PCP Family Medicine; Visit Provider Family Medicine
DX: M06.9 Rheumatoid arthritis, unspecified (principal)
CPT/HCPCS: 36415; 84550; 85652; 86038; 86140; 86200; 86225; 86235; 86430; 86431; 86812